=== PATIENT | female | born 1935 | race Caucasian/White ===

== ENCOUNTER 2016-10-01 18:42 | Observation (INO) | payer OTHER ==
[2016-10-01] VITALS (7 sets, daily range): BP systolic 142–209; BP diastolic 67–95; PULSE 56–65; RESP 18; TEMP 98.2; O2SAT 96–98
[~2016-10-01] VITALS: Ht 175.3 cm; Wt 99.5 kg
[~2016-10-01 18:42] MED LIST: ALLE25CA5 PO; ASPI325T PO; CHOL50006 PO; FURO1TAB93 PO; ISOS10TA35 PO; KCL20 PO; MULT1TAB46 PO; NITR.4 SL; SIMV20TA PO; VITA100020 SL
[2016-10-01] MEDS ORDERED: LACTCAP8 PO (19:21)
[2016-10-01] MEDS ORDERED: SODIUM CHLORIDE 0.9% FLUSH 5 ML FLUSH IVF PRN ×2 (19:30→22:30)
[2016-10-01] MEDS ORDERED: ISOSORBIDE DINITRATE 10 MG TAB PO ONE (19:30)
[2016-10-01] MEDS ORDERED: ASPIRIN 81 MG CHEW TAB PO ONE (19:30)
--- NOTE | 2016-10-01 19:48 | RADRPT ---
EXAM DATE/TIME: 10/01/2016 19:39 [facility] COMPARISON: CHEST SINGLE AP, June 11, 2015, 10:14. INDICATIONS : Chest pain. MEDICAL HISTORY : None. SURGICAL HISTORY : None. ENCOUNTER: Initial ACUITY: 1 day PAIN SCORE: 7/10 LOCATION: Bilateral chest FINDINGS: A single view of the chest demonstrates the lungs to be symmetrically aerated without evidence of mas s, infiltrate or effusion. The cardiomediastinal contours are unremarkable. Osseous structures are intact. CONCLUSION: No acute disease. Abhijeet Ritchie MD on October 01, 2016 at 19:46 Board Certified Radiologist. This report was verified electronically.
[2016-10-01 20:09] LABS: BASOPHIL % 0.4 % (0.0-2.0); EOSINOPHIL # 0.1 TH/MM3 (0-0.4); EOSINOPHIL % 0.7 % (0.0-4.0); HEMATOCRIT 46.6 % (35.0-46.0); HEMO FLAGS DIFF FINAL; LYMPHOCYTE # 1.3 TH/MM3 (1.0-4.8); MEAN CELL VOLUME 91.5 FL (80.0-100.0); MEAN CORPUSCULAR HEMOGLOBIN 31.4 PG (27.0-34.0); MEAN CORPUSCULAR HGB CONC 34.3 % (32.0-36.0); MONO % 5.7 % (0.0-8.0); NEUT % 82.2 % (16.0-70.0); PLATELET COUNT 255 TH/MM3 (150-450); RED BLOOD COUNT 5.09 MIL/MM3 (4.00-5.30); WHITE BLOOD COUNT 12.1 TH/MM3 (4.0-11.0)
[2016-10-01 20:18] LABS: APTT (PATIENT) 24.6 SEC (24.3-30.1); PROTHROMBIN TIME - PATIENT 10.7 SEC (9.8-11.6)
--- NOTE | 2016-10-01 20:21 | PD ---
HPI Chief Complaint: Cardiac Complaint Time Seen by Provider: 19:06 Travel History International Travel<30 days: No Contact w/Intl Traveler<30days: No Traveled to known affect area: No History of Present Illness HPI Patient is a 81-year-old female, with history of 7 stents, who comes in complaining of an episode of chest pain and shortness of breath. She says she was standing at her stove cooking when she suddenly felt terrible pressure to her chest and felt like she was unable to breathe. She says she tried taking a nitroglycerin, and it did not help, so she took another one. The pain started to the right side of her chest and then moved to the left. She says it radiates towards her neck. She says she told her daughter to call 911 because she felt like she needed oxygen. She does report coughing up some phlegm. She says she has had pain and swelling to her left leg for the past few days. She says the Lasix has not helped with the swelling. Her daughter does report that when she is feeling short of breath. Skin started to turn colors. She says it lasted until she was given oxygen by paramedics. Currently she is asymptomatic , other than her leg pain. PFSH Past Medical History Asthma: No Autoimmune Disease: No Blood Disorders: No Heart Rhythm Problems: Yes Cancer: Yes (UTERINE-REMOVED) Cardiac Catheterization: Yes Cardiovascular Problems: Yes (SD, STENTS(7), AFIB, MURMUR, CAD, WPW) High Cholesterol: Yes Chest Pain: No COPD: Yes Cerebrovascular Accident: Yes Coronary Artery Disease: Yes Diabetes: No Gastrointestinal Disorders: No GERD: Yes Glaucoma: Yes Hepatitis: No Hiatal Hernia: No Hypertension: Yes Musculoskeletal: Yes (DJD;) Psychiatric: No Respiratory: No Integumentary: No Myocardial Infarction: Yes Pancreatitis: Yes Sleep Apnea: No Thyroid Disease: No Menopausal: Yes Tubal Ligation: Yes Past Surgical History Abdominal Surgery: Yes (HERNIA REPAIR) Appendectomy: Yes Coronary Stent: Yes (X7) Hysterectomy: Yes Social History Alcohol Use: No Tobacco Use: No (QUIT 20 YEARS AGO ) Substance Use: No Allergies-Medications (Allergen,Severity, Reaction): Coded Allergies: Morphine (Unverified Allergy, Severe, AMS, 06/11/15) Penicillin (Verified Allergy, Severe, Hives, 06/11/15) Sulfa (Verified Allergy, Severe, Rash, 06/11/15) Uncoded Allergies: PENICILLIN (Allergy, Unknown, 05/29/03) Reported Meds & Prescriptions Reported Meds & Active Scripts Active Review of Systems Except as stated in HPI: all other systems reviewed are Neg General / Constitutional: No: Fever, Chills HENT: No: Headaches, Lightheadedness Cardiovascular: Positive: Chest Pain or Discomfort Respiratory: Positive: Shortness of Breath Gastrointestinal: No: Nausea, Vomiting Skin: No Rash, No Change in Pigmentation Neurologic: No: Weakness, Dizziness Physical Exam Narrative GENERAL: Awake and alert in no acute distress. SKIN: Warm and dry. HEAD: Atraumatic. Normocephalic. EYES: Pupils equal and round. No scleral icterus. ENT: Mucous membranes pink and moist. NECK: Trachea midline. No JVD. CARDIOVASCULAR: Regular rate and rhythm. No murmur appreciated. RESPIRATORY: No accessory muscle use. Clear to auscultation. Breath sounds equal bilaterally. GASTROINTESTINAL: Abdomen soft, non-tender, nondistended. Hepatic and splenic margins not palpable. MUSCULOSKELETAL: No obvious deformities. No clubbing. No cyanosis. Tender to palpation of left calf. 1+ edema of the left leg. NEUROLOGICAL: Awake and alert. No obvious cranial nerve deficits. Motor grossly within normal limits. Normal speech. PSYCHIATRIC: Appropriate mood and affect; insight and judgment normal. Data Data Last Documented VS Vital Signs Date Time Temp Pulse Resp B/P Pulse Ox O2 Delivery O2 Flow Rate FiO2 10/01/16 22:05 63 18 151/67 97 Nasal Cannula 2 10/01/16 18:50 98.2 Orders Electrocardiogram (10/01/16 19:19) B-Type Natriuretic Peptide (10/01/16 19:19) Ckmb (Isoenzyme) Profile (10/01/16 19:19) Complete Blood Count With Diff (10/01/16 19:19) Comprehensive Metabolic Panel (10/01/16 19:19) Magnesium (Mg) (10/01/16 19:19) Prothrombin Time / Inr (Pt) (10/01/16 19:19) Act Partial Throm Time (Ptt) (10/01/16 19:19) Troponin I (10/01/16 19:19) Chest, Single Ap (10/01/16 19:19) Ecg Monitoring (10/01/16 19:19) Bilateral Bp Monitoring (10/01/16 19:19) Iv Access Insert/Monitor (10/01/16 19:19) Oximetry (10/01/16 19:19) Oxygen Administration (10/01/16 19:19) Aspirin Chew (Aspirin Chew) (10/01/16 19:30) Sodium Chloride 0.9% Flush (Ns Flush) (10/01/16 19:30) Ct Pulmonary Angiogram (10/01/16 19:19) Us Leg Venous Doppler (10/01/16 ) Isosorbide Dinitrate (Isordil) (10/01/16 19:30) Iodixanol 320 Inj (Visipaque 320 Inj) (10/01/16 21:00) Activity Bed Rest With Brp (10/01/16 22:23) Vital Signs (Adult) Q4H (10/01/16 22:23) Cardiac Rhythm .As Directed (10/01/16 22:23) ^ Notify Dr: Other .PRN (10/01/16 22:23) ^ Notify . Parameters (10/01/16 22:23) Resp Oxygen Nasal Cannula (10/01/16 ) Diet Heart Healthy (10/02/16 Breakfast) Ckmb (Isoenzyme) Profile (10/01/16 22:45) Ckmb (Isoenzyme) Profile (10/02/16 01:45) Troponin I (10/01/16 22:45) Troponin I (10/02/16 01:45) Electrocardiogram (10/01/16 22:45) Electrocardiogram (10/02/16 01:45) ^ Obtain (10/01/16 22:23) Sodium Chloride 0.9% Flush (Ns Flush) (10/01/16 22:30) Sodium Chloride 0.9% Flush (Ns Flush) (10/02/16 09:00) Admit Order (Ed Use Only) (10/01/16 ) Labs Laboratory Tests Test 10/01/16 19:45 White Blood Count 12.1 TH/MM3 Red Blood Count 5.09 MIL/MM3 Hemoglobin 16.0 GM/DL Hematocrit 46.6 % Mean Corpuscular Volume 91.5 FL Mean Corpuscular Hemoglobin 31.4 PG Mean Corpuscular Hemoglobin 34.3 % Concent Red Cell Distribution Width 13.0 % Platelet Count 255 TH/MM3 Mean Platelet Volume 8.6 FL Neutrophils (%) (Auto) 82.2 % Lymphocytes (%) (Auto) 11.0 % Monocytes (%) (Auto) 5.7 % Eosinophils (%) (Auto) 0.7 % Basophils (%) (Auto) 0.4 % Neutrophils # (Auto) 10.0 TH/MM3 Lymphocytes # (Auto) 1.3 TH/MM3 Monocytes # (Auto) 0.7 TH/MM3 Eosinophils # (Auto) 0.1 TH/MM3 Basophils # (Auto) 0.0 TH/MM3 CBC Comment DIFF FINAL Differential Comment Prothrombin Time 10.7 SEC Prothromb Time International 1.0 RATIO Ratio Activated Partial 24.6 SEC Thromboplast Time Sodium Level 138 MEQ/L Potassium Level 3.8 MEQ/L Chloride Level 102 MEQ/L Carbon Dioxide Level 26.7 MEQ/L Anion Gap 9 MEQ/L Blood Urea Nitrogen 11 MG/DL Creatinine 1.32 MG/DL Estimat Glomerular Filtration 39 ML/MIN Rate Random Glucose 102 MG/DL Calcium Level 9.4 MG/DL Magnesium Level 2.2 MG/DL Total Bilirubin 0.5 MG/DL Aspartate Amino Transf 20 U/L (AST/SGOT) Alanine Aminotransferase 36 U/L (ALT/SGPT) Alkaline Phosphatase 82 U/L Total Creatine Kinase 96 U/L Troponin I LESS THAN 0.02 NG/ML B-Type Natriuretic Peptide 17 PG/ML Total Protein 8.5 GM/DL Albumin 4.9 GM/DL [facility] Medical Decision Making Medical Screen Exam Complete: Yes Emergency Medical Condition: Yes Medical Record Reviewed: Yes Interpretation(s) ECG shows sinus bradycardia at 56, no ST elevation or depression. Differential Diagnosis ACS, NSTEMI, STEMI, PE Narrative Course Patient is a 81 year old female who comes in complaining of an episode of chest pain and SOB. Exam shows no acute abnormalities. ECG shows no ST elevation. Labs sent, including Troponin are within normal limits. CTA chest performed shows no PE. US of the leg is negative for DVT. Patient given Aspirin, her night time blood pressure medication. Placed in chest pain center for further management. Diagnosis Primary Impression: Chest pain Qualified Code: R07.9 - Chest pain, unspecified type Admitting Information Admitting Physician Requests: Urmila Villa MD Oct 01, 2016 20:21 Placed in chest pain center for further management. Diagnosis Primary Impression: Chest pain Qualified Code: R07.9 - Chest pain, unspecified type Admitting Information Admitting Physician Requests: Urmila Villa MD Oct 01, 2016 20:21
[2016-10-01 20:39] LABS: ANION GAP 9 MEQ/L (5-15); AST (GOT) 20 U/L (15-37); BICARBONATE 26.7 MEQ/L (21.0-32.0); BLOOD UREA NITROGEN 11 MG/DL (7-18); CHLORIDE 102 MEQ/L (98-107); GLOMERULAR FILTRATION RATE 39 ML/MIN (>89); MAGNESIUM 2.2 MG/DL (1.5-2.5); POTASSIUM 3.8 MEQ/L (3.5-5.1); SODIUM (NA) 138 MEQ/L (136-145)
[2016-10-01 20:45] LABS: ALKALINE PHOSPHATASE 82 U/L (45-117); ALT (GPT) 36 U/L (10-53); TOTAL BILIRUBIN ADULT 0.5 MG/DL (0.2-1.0)
[2016-10-01 20:55] LABS: CREATINE KINASE 96 U/L (26-192)
[2016-10-01] MEDS ORDERED: IODIXANOL 320 MG/ML 10 ML VIAL (for RAD SPEC) IV ONE (21:00)
--- NOTE | 2016-10-01 21:21 | RADRPT ---
EXAM DATE/TIME: 10/01/2016 20:54 [facility] COMPARISON: CHEST SINGLE AP, October 01, 2016, 19:39. INDICATIONS : Shortness of breath with chest pain that radiates nena both arms. IV CONTRAST: 50 cc Visipaque (iodixanol) IV RADIATION DOSE: 23.42 CTDIvol (mGy) MEDICAL HISTORY : Cerebrovascular disease. Myocardial infarction. Chronic obstructive pulmonary disease.Coronary artery disease. Hypertension. Gastroesophageal reflux disease. Stage three renal disease. SURGICAL HISTORY : Coronary artery stent. ENCOUNTER: Initial ACUITY: 1 day PAIN SCALE: 7/10 LOCATION: Bilateral chest TECHNIQUE: Volumetric scanning of the chest was performed using a pulmonary embolism protocol MIP images were re constructed. Using automated exposure control and adjustment of the mA and/or kV according to patien t size, radiation dose was kept as low as reasonably achievable to obtain optimal diagnostic quality images. FINDINGS: PULMONARY ARTERIES: There is suboptimal opacification of the distal pulmonary arteries. No filling defects are seen in th e central pulmonary arteries. LUNGS: There is no consolidation or pneumothorax . Minimal scattered bibasilar densities. No concerning pulm onary nodule is visualized. PLEURAE: There is no pleural thickening or pleural effusion. MEDIASTINUM: There is good visualization of the great vessels of the middle mediastinum. No evidence of mediastin al or hilar adenopathy/mass. Coronary artery calcifications. MUSCULOSKELETAL: Within normal limits for patient age. MISCELLANEOUS: The visualized upper abdominal organs demonstrate no acute abnormality. CONCLUSION: 1. No central pulmonary emboli. 2. Coronary artery calcifications. 3. Minimal densities in the lower lobes likely atelectasis. Abhijeet Ritchie MD on October 01, 2016 at 21:10 Board Certified Radiologist. This report was verified electronically.
--- NOTE | 2016-10-01 22:04 | RADRPT ---
EXAM DATE/TIME: 10/01/2016 21:21 [facility] COMPARISON: No previous studies available for comparison. INDICATIONS : Left lower extremity pain. MEDICAL HISTORY : Myocardial infarction. Hypercholesterolemia. Pancreatitis. Glaucoma. CVA. Syncope. Afib. CAD. HTN. COPD. GERD. Stage III chronic kidney disease. Uterine cancer. Anticoagulant therapy, Aspirin 81mg & 375mg. SURGICAL HISTORY : Coronary artery stent. Appendectomy. Tubal ligation. Cardiac cath. Hernia repair. Hysterectomy. ENCOUNTER: Initial ACUITY: 1 week PAIN SCORE: 8/10 LOCATION: Left leg. TECHNIQUE: Venous ultrasound of the leg was performed from the inguinal ligament to the proximal calf. Real-chris e, color Doppler and spectral tracing, compression and augmentation techniques were used. FINDINGS: There is normal compressibility of the deep venous system from the inguinal region to the proximal ca lf. No echogenic clot is seen in the lumen of the common femoral, femoral, popliteal, and posterior tibial veins. There is a normal response of the venous system to proximal and distal augmentation an d respiration. Viscous flow noted. CONCLUSION: No DVT in the left leg. Abhijeet Ritchie MD on October 01, 2016 at 22:02 Board Certified Radiologist. This report was verified electronically.
[2016-10-01 23:37] LABS: CREATINE KINASE 72 U/L (26-192)
[2016-10-02] VITALS (19 sets, daily range): BP systolic 114–186; BP diastolic 60–85; PULSE 54–81; RESP 18; TEMP 97.7–98.3; O2SAT 95–99
[2016-10-02 02:24] LABS: CREATINE KINASE 77 U/L (26-192)
[2016-10-02] MEDS ORDERED: ISOSORBIDE MONONITRATE 10 MG PO SCH (09:00)
[2016-10-02] MEDS ORDERED: ASPI325T PO (09:04)
[2016-10-02] MEDS ORDERED: D3400CAP PO (09:04)
[2016-10-02] MEDS ORDERED: FURO1TAB60 PO (09:05)
[2016-10-02] MEDS ORDERED: POTA-163 PO (09:10)
[2016-10-02] MEDS ORDERED: ISOS10TA3 PO (09:10)
[2016-10-02] MEDS ORDERED: NITR1SUB3 SL (09:10)
[2016-10-02] MEDS ORDERED: SIMV20TA PO (09:10)
[2016-10-02] MEDS ORDERED: amLODIPine BESYLATE 5 MG TAB PO SCH (09:45)
[2016-10-02] MEDS: POTASSIUM CHLORIDE 20 MEQ CONTROLLED RELEASE TAB PO SCH ×2 (10:06→20:28)
[2016-10-02] MEDS: FUROSEMIDE 40 MG TAB PO SCH (10:07)
[2016-10-02] MEDS: SODIUM CHLORIDE 0.9% FLUSH 5 ML FLUSH IVF SCH ×2 (10:07→20:28)
--- NOTE | 2016-10-02 11:08 | MB ---
cc: CASE VITAL,ALEJANDRO Hinton MD DATE OF CONSULTATION 10/02/[address] Alejandro Burton REASON FOR CONSULTATION Chest pain, shortness of breath. HISTORY OF PRESENT ILLNESS Nikki Castelan is a pleasant 81-year-old female who presents to [facility] emergency room on October 01, 2015 due to chest pain and shortness of breath. She states that she was at home cooking in the kitchen and started feeling short of breath. At the same time, she started having pressure in the center of her chest and then started feeling a throbbing into her head. She states that she has never felt like this before. She attempted to take a nitroglycerin which did not help. She then took a second nitroglycerin which started to help. She asked her daughter to call EMS. On arrival of EMS staff she was placed on oxygen. She states that at that time the chest pressure had gone away which she still had somewhat of a headache. On arrival to the emergency room, her blood pressure was 209/95. Once her blood pressure started to come down into the 160/70 range, she started to feel better. She states since being in the emergency room, she has had no chest pain, shortness of breath or headaches. She has been up and walking around the room without complaints. PAST MEDICAL HISTORY 1. Coronary artery disease 2. Uterine cancer 3. Questionable history of atrial fibrillation. 4. History of sinus bradycardia. 5. Questionable history of CVA. 6. Chronic kidney disease stage III. 7. DJD 8. Gastroesophageal reflux disease 9. Hyperlipidemia 10. Hypertension 11. 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 PAST SURGICAL HISTORY 1. Cardiac catheterization. (May 05, 2016) left main ALEXANDER-3 tired flow. LAD, patent stents. Left circ proximal eccentric 70% lesion, patent stenting. RCA dominant patent stents with luminal irregularities. FFR of the left circumflex 0.96. 2. EP study (May 06, 2016) negative for supraventricular Tachycardia. 3. Appendectomy 4. Hernia repair 5. Hysterectomy 6. Tubal ligation ALLERGIES 1. MORPHINE 2. PENICILLIN 3. SULFA MEDICATIONS 1. Aspirin 325 mg daily 2. Zocor 20 mg daily 3. Lasix 40 mg daily 4. Isosorbide mononitrate 10 mg b.i.d. 5. Nitro sublingual as needed 6. Potassium 20 mEq daily FAMILY HISTORY Denies premature coronary artery disease or sudden cardiac within the family. SOCIAL HISTORY Denies alcohol or drug abuse. Previously was a cardiovascular nurse. Previously smoked one to one and a half packs per day, but quit a number of years ago. REVIEW OF SYSTEMS 14 systems were reviewed including osteopathic pertinent positives and negatives as above, otherwise negative. PHYSICAL EXAMINATION VITAL SIGNS: Temperature 98.2, heart rate 60, blood pressure 186/77, respirations 18, pulse ox 97% on room air. GENERAL: In general, the patient appears well in no acute distress, alert, awake and oriented x3. HEAD, EYES, EARS, NOSE, AND THROAT: Extraocular muscles intact. Mucous membranes moist. NECK: Supple. No JVD at 45 degrees. No carotid bruits heard bilaterally. Carotid upstroke is brisk in nature. HEART: Regular rate and rhythm. Positive first and second heart sounds with a 1/6 holosystolic murmur noted at the apex. LUNGS: Clear to auscultation bilaterally. No wheezes, rales or rhonchi. ABDOMEN: Soft, nontender, nondistended. No organomegaly noted. EXTREMITIES: Shows trace to 1+ pitting edema bilaterally. NEUROLOGIC: No focal deficits. SKIN: Warm, dry and intact. OSTEOPATHIC: Mild lordosis. No kyphoscoliosis or paraspinal tender points. LABORATORY FINDINGS White blood cells 12.1, hemoglobin 16.0, hematocrit 46.6, platelets 255. Potassium 3.8, BUN 11, creatinine 1.32, troponin negative x3. BNP 17. Electrocardiogram (10/02/2016 at 0238) sinus bradycardia, LVH with secondary ST-T wave changes. No significant change on EKG since May 05, 2016. IMPRESSIONS 1. Chest pain possibly due to angina versus elevated blood pressure. 2. Headache due to hypertensive episode. 3. Accelerated hypertension with a blood pressure of 209/95 on arrival to the emergency room. 4. Shortness of breath most likely due to elevated blood pressure. 5. Questionable history of atrial fibrillation. 6. History of WPW. 7. Recent cardiac catheterization (May 05, 2016) with no significant obstructive coronary artery disease. RECOMMENDATIONS 1. Nikki Castelan presents with an elevated blood pressure and during this time she had some chest pressure, headache and shortness of breath. I feel like her underlying cause is due to her blood pressure more likely than true obstructive coronary artery disease. 2. I do not feel that she needs to be taken to the cardiac catheterization lab as troponins have been negative, EKG is stable since April 2016, and she currently has no chest pain or shortness of breath. 3. I did offer her consideration of stress test due to her chest pain with her significant history of seven stents, but she feels she would like to treat this medically and hoping that with better blood pressure control, she will no longer have chest pain or shortness of breath. 4. I will add Norvasc 5 mg to her current regimen and this can be titrated up to 10. I would also consider increasing her isosorbide if unable to control her blood pressure with Norvasc. 5. Upon discharge, she can follow up with Dr. Hair in the office. 6. The did explain that if any time she reconsiders medical management of her coronary artery disease, then consideration could be made at that time for stress testing depending on her current symptoms. 7. At this time, she did not prefer to undergo a stress test as she would not want cardiac catheterization if positive Thank you for allowing me to see Nikki Castelan. If there are any questions, please do not hesitate to call. Case Vital DO VGP/DJL /9:29 AM /10:46 AM VEE
--- NOTE | 2016-10-02 14:36 | EKG ---
Date Performed: 10/02/2016 Time Performed: 02:38:53 PTAGE: 81 years EKG: SINUS BRADYCARDIA LEFT VENTRICULAR HYPERTROPHY AND ST-T CHANGE ABNORMAL ECG PREVIOUS TRACING : 10/01/2016 22.47 Since previous tracing, no significant change noted DOCTOR: Rich Julio Interpretating Date/Time 10/02/2016 14:36:02
--- NOTE | 2016-10-02 14:44 | EKG ---
Date Performed: 10/01/2016 Time Performed: 22:47:46 PTAGE: 81 years EKG: SINUS BRADYCARDIA LEFT VENTRICULAR HYPERTROPHY AND ST-T CHANGE ABNORMAL ECG PREVIOUS TRACING : 10/01/2016 19.42 Since previous tracing, no significant change noted DOCTOR: Rich Julio Interpretating Date/Time 10/02/2016 14:44:06
--- NOTE | 2016-10-02 14:47 | EKG ---
Date Performed: 10/01/2016 Time Performed: 19:42:43 PTAGE: 81 years EKG: SINUS BRADYCARDIA LEFT VENTRICULAR HYPERTROPHY AND ST-T CHANGE ABNORMAL ECG PREVIOUS TRACING : 05/05/2016 21.23 Since previous tracing, no significant change noted DOCTOR: Rich Julio Interpretating Date/Time 10/02/2016 14:45:24
--- NOTE | 2016-10-02 17:02 | HHI.HP ---
cc: Alejandro Burton MD [facility] Alejandro Burton MD Admission Diagnosis Chest Pain Diagnoses: Chief Complaint: Chest discomfort Travel History International Travel<30 Days: No Contact w/Intl Traveler <30 Da: No Traveled to Known Affected Are: No History of Present Illness This is a 81-year-old female with history of hypertension, coronary artery disease, CVA and chronic kidney disease status post a hospital with chest pain or shortness of breath. She has been in her usual state of health until yesterday when she was home cooking in the kitchen and started feeling short of breath, described as moderate to severe, described as pressure, accompanied by throbbing in her head. She took a nitroglycerin which did not help. A second nitroglycerin helped. She was then brought to the hospital by EMS, upon arrival , blood pressure was in the 210 systolic. Once her blood pressure improved, she started feeling better. She denies any numbness, headache, nausea, vomiting , or focal weakness. Presently, she feels a lot better, no chest pain. Review of Systems ROS Limitations: Other (All other pertinent systems were reviewed and are negative.) Past Family Social History Past Medical History 1. Coronary artery disease 2. Uterine cancer 3. Questionable history of atrial fibrillation. 4. History of sinus bradycardia. 5. Questionable history of CVA. 6. Chronic kidney disease stage III. 7. DJD 8. Gastroesophageal reflux disease 9. Hyperlipidemia 10. Hypertension 11. 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 Past Surgical History 1. Cardiac catheterization. (May 05, 2016) left main ALEXANDER-3 tired flow. LAD, patent stents. Left circ proximal eccentric 70% lesion, patent stenting. RCA dominant patent stents with luminal irregularities. FFR of the left circumflex 0.96. 2. EP study (May 06, 2016) negative for supraventricular Tachycardia. 3. Appendectomy 4. Hernia repair 5. Hysterectomy 6. Tubal ligation Reported Medications Simvastatin 20 Mg Tab 20 Mg PO DAILY Nitroglycerin SL (Nitroglycerin) 0.4 Mg Subl 0.4 Mg SL DIRECTED PRN ONE TABLET UNDER THE TONGUE NEEDED FOR CHEST PAIN, MAY REPEAT EVERY FIVE MINUTES FOR A TOTAL OF 3 DOSES OR CALL 911 IF NO RELIEF Potassium Chloride ER (Potassium Chloride) 20 Meq Tab 20 Meq PO DAILY Isosorbide Mononitrate 10 Mg Tab 10 Mg PO BID Take 2 doses 7 hours apart. Lasix (Furosemide) 40 Mg Tab 40 Mg PO DAILY D3 (Cholecalciferol) 400 Unit Cap 400 Mg PO DAILY Aspirin 325 Mg Tab 325 Mg PO DAILY Allergies: Coded Allergies: Morphine (Unverified Allergy, Severe, AMS, 06/11/15) Penicillin (Verified Allergy, Severe, Hives, 06/11/15) Sulfa (Verified Allergy, Severe, Rash, 06/11/15) Uncoded Allergies: PENICILLIN (Allergy, Unknown, 05/29/03) Family History No premature coronary artery disease. Social History Previously a cardiovascular nurse.. He smoked 1-1-1/2 packs a day but has quit. No alcohol use. Physical Exam Vital Signs Vital Signs Date Time Temp Pulse Resp B/P Pulse Ox O2 Delivery O2 Flow Rate FiO2 10/02/16 16:03 57 10/02/16 15:10 62 10/02/16 15:10 98.0 62 18 156/78 95 10/02/16 14:13 60 10/02/16 13:06 59 10/02/16 13:00 97.7 57 18 160/72 99 10/02/16 12:37 57 10/02/16 12:28 98.3 58 18 172/68 99 10/02/16 11:08 98.3 56 18 175/72 98 Room Air 10/02/16 08:32 60 18 186/77 97 Room Air 10/02/16 07:15 56 18 114/61 96 Room Air 10/02/16 04:40 55 18 141/85 95 Room Air 10/01/16 23:36 96 Nasal Cannula 2.00 10/01/16 22:56 56 18 158/67 98 Nasal Cannula 2 10/01/16 22:05 63 18 151/67 97 Nasal Cannula 2 10/01/16 21:30 62 18 147/70 98 Nasal Cannula 2 10/01/16 20:00 62 18 142/76 97 Nasal Cannula 2 10/01/16 19:52 98 Nasal Cannula 2 10/01/16 19:08 64 18 152/73 98 Room Air 10/01/16 18:50 98.2 65 18 209/95 98 Physical Exam GENERAL: This is a well-nourished, well-developed patient, in no apparent distress. SKIN: No rashes, ecchymoses or lesions. Cool and dry. HEAD: Atraumatic. Normocephalic. No temporal or scalp tenderness. EYES: Pupils equal round and reactive. Extraocular motions intact. No scleral icterus. No injection or drainage. ENT: Nose without bleeding, purulent drainage or septal hematoma. Throat without erythema, tonsillar hypertrophy or exudate. Uvula midline. Airway patent. NECK: Trachea midline. No JVD or lymphadenopathy. Supple, nontender, no meningeal signs. CARDIOVASCULAR: Regular rate and rhythm without murmurs, gallops, or rubs. RESPIRATORY: Clear to auscultation. Breath sounds equal bilaterally. No wheezes , rales, or rhonchi. GASTROINTESTINAL: Abdomen soft, non-tender, nondistended. No hepato-splenomegaly , or palpable masses. No guarding. MUSCULOSKELETAL: Extremities without clubbing, cyanosis, or edema. No joint tenderness, effusion, or edema noted. No calf tenderness. Negative Homans sign bilaterally. NEUROLOGICAL: Awake and alert. Cranial nerves II through XII intact. Motor and sensory grossly within normal limits. Five out of 5 muscle strength in all muscle groups. Normal speech. Laboratory Laboratory Tests Test 10/01/16 10/01/16 10/02/16 19:45 22:45 01:45 White Blood Count 12.1 Red Blood Count 5.09 Hemoglobin 16.0 Hematocrit 46.6 Mean Corpuscular Volume 91.5 Mean Corpuscular Hemoglobin 31.4 Mean Corpuscular Hemoglobin 34.3 Concent Red Cell Distribution Width 13.0 Platelet Count 255 Mean Platelet Volume 8.6 Neutrophils (%) (Auto) 82.2 Lymphocytes (%) (Auto) 11.0 Monocytes (%) (Auto) 5.7 Eosinophils (%) (Auto) 0.7 Basophils (%) (Auto) 0.4 Neutrophils # (Auto) 10.0 Lymphocytes # (Auto) 1.3 Monocytes # (Auto) 0.7 Eosinophils # (Auto) 0.1 Basophils # (Auto) 0.0 CBC Comment DIFF FINAL Differential Comment Prothrombin Time 10.7 Prothromb Time International 1.0 Ratio Activated Partial 24.6 Thromboplast Time Sodium Level 138 Potassium Level 3.8 Chloride Level 102 Carbon Dioxide Level 26.7 Anion Gap 9 Blood Urea Nitrogen 11 Creatinine 1.32 Estimat Glomerular Filtration 39 Rate Random Glucose 102 Calcium Level 9.4 Magnesium Level 2.2 Total Bilirubin 0.5 Aspartate Amino Transf 20 (AST/SGOT) Alanine Aminotransferase 36 (ALT/SGPT) Alkaline Phosphatase 82 Total Creatine Kinase 96 72 77 Troponin I LESS THAN 0.02 LESS THAN 0.02 LESS THAN 0.02 B-Type Natriuretic Peptide 17 Total Protein 8.5 Albumin 4.9 Result Diagram: 10/01/16194410/01/161944 Imaging Last Impressions Chest X-Ray 10/01/161918 Signed Impressions: Service Date/Time: Saturday, October 01, 2016 19:39 - CONCLUSION: No acute disease. Abhijeet Ritchie MD CT Angiography 10/01/161918 Signed Impressions: Service Date/Time: Saturday, October 01, 2016 20:54 - CONCLUSION: 1. No central pulmonary emboli. 2. Coronary artery calcifications. 3. Minimal densities in the lower lobes likely atelectasis. Abhijeet Ritchie MD Lower Extremity Ultrasound 10/01/16 0000 Signed Impressions: Service Date/Time: Saturday, October 01, 2016 21:21 - CONCLUSION: No DVT in the left leg. Abhijeet Ritchie MD Assessment and Plan Assessment and Plan This is a 81-year-old female with history of hypertension, chronic kidney disease, coronary artery disease presenting with chest pain and shortness of breath Chest pain likely secondary to hypertensive emergency- chest pain likely secondary to hypertensive emergency, EKG unremarkable personally reviewed, troponin negative 3. Norvasc started. Restart Lasix and Imdur. Cardiology consulted, patient refused stress test or any further workup. Discussed with Dr. Talley. Vasotec and hydralazine as needed. Hypertension-as above. Dyslipidemia-restart statin Chronic kidney disease stage II-creatinine appears baseline, recheck BMP tomorrow Leukocytosis-likely stress-induced, monitor, recheck tomorrow. DVT prophylaxis: Heparin Physician Certification 2 Midnight Certification Type: Admission for Inpatient Services Order for Inpatient Services The services are ordered in accordance with Medicare regulations or non- Medicare payer requirements, as applicable. In the case of services not specified as inpatient-only, they are appropriately provided as inpatient services in accordance with the 2-midnight benchmark. Estimated LOS (days): 2 days is the estimated time the patient will need to remain in the hospital, assuming treatment plan goals are met and no additional complications. Post-Hospital Plan: Yajaira Rogers MD Oct 02, 2016 17:02
[2016-10-02] MEDS ORDERED: FUROSEMIDE 40 MG TAB PO SCH (17:15)
[2016-10-02] MEDS ORDERED: ENALAPRILAT 1.25 MG/ML VIAL IV PUSH PRN (17:30)
[2016-10-02] MEDS ORDERED: hydrALAZINE HCL 20 MG/ML VIAL IV PUSH PRN (17:30)
[2016-10-02] MEDS ORDERED: ISOSORBIDE MONONITRATE 20 MG TAB PO SCH (18:00)
[2016-10-02] MEDS: HEPARIN SODIUM - SQ 10,000 UNITS/ML VIAL SQ SCH (20:28)
[2016-10-02] MEDS ORDERED: PRAVASTATIN SOD 40 MG TAB PO SCH (21:00)
[2016-10-03] VITALS (10 sets, daily range): BP systolic 121–126; BP diastolic 65–76; PULSE 48–60; TEMP 97.4–97.8; O2SAT 96–98
[2016-10-03] MEDS: HEPARIN SODIUM - SQ 10,000 UNITS/ML VIAL SQ SCH (05:48)
[2016-10-03] MEDS: POTASSIUM CHLORIDE 20 MEQ CONTROLLED RELEASE TAB PO SCH (08:04)
[2016-10-03] MEDS: FUROSEMIDE 40 MG TAB PO SCH (08:05)
[2016-10-03] MEDS ORDERED: ASPIRIN 325 MG TAB PO SCH (09:00)
[2016-10-03] MEDS ORDERED: PRAVASTATIN SOD 40 MG TAB PO SCH (09:00)
[2016-10-03] MEDS ORDERED: POTASSIUM CHLORIDE 20 MEQ CONTROLLED RELEASE TAB PO SCH (09:00)
[2016-10-03] MEDS ORDERED: CHOLECALCIFEROL (VIT D3) 400 UNIT TAB PO SCH (09:00)
--- NOTE | 2016-10-03 09:58 | PD.CARD.PN ---
Subjective Subjective Remarks No chest pain, no shortness of breath, up and ambulating Objective Medications Current Medications Medications (Trade) Dose Ordered Sig/Cassy Route Start Time Stop Time Status Last Admin (Lasix) 40 mg DAILY PO 10/02/16 09:00 10/03/16 08:05 (KCl) 20 meq BID PO 10/02/16 09:00 10/03/16 08:04 (Pravachol) 40 mg HS PO 10/02/16 21:00 10/02/16 20:28 (Norvasc) 5 mg DAILY PO 10/02/16 09:45 10/02/16 10:06 (Aspirin) 325 mg DAILY PO 10/03/16 09:00 10/03/16 08:04 (Lasix) 40 mg DAILY PO 10/02/16 17:15 (Ismo) 10 mg DAILY@08,15 PO 10/02/16 18:00 10/02/16 18:34 (KCl) 20 meq DAILY PO 10/03/16 09:00 (Vitamin D3) 400 units DAILY PO 10/03/16 09:00 10/03/16 08:05 (Pravachol) 40 mg DAILY PO 10/03/16 09:00 10/03/16 08:04 (Apresoline Inj) 10 mg Q6H PRN IV PUSH 10/02/16 17:30 (Vasotec Inj) 1.25 mg Q6H PRN IV PUSH 10/02/16 17:30 10/02/16 20:34 (Heparin Inj) 5,000 units Q8HR SQ 10/02/16 22:00 10/03/16 05:48 Vital Signs / I&O Vital Signs Date Time Temp Pulse Resp B/P Pulse Ox O2 Delivery O2 Flow Rate FiO2 10/03/16 09:00 60 10/03/16 08:00 58 10/03/16 07:00 97.4 60 121/76 98 10/03/16 07:00 60 10/03/16 05:00 50 10/03/16 04:00 49 10/03/16 03:00 97.8 55 126/65 96 10/03/16 03:00 55 10/03/16 02:00 48 10/03/16 01:00 50 10/03/16 00:00 56 10/02/16 23:00 98.0 55 134/60 95 10/02/16 23:00 55 10/02/16 22:00 54 10/02/16 21:00 56 10/02/16 20:00 60 10/02/16 19:00 59 10/02/16 19:00 97.7 59 160/80 98 10/02/16 18:07 61 10/02/16 17:24 66 10/02/16 16:03 57 10/02/16 15:10 62 10/02/16 15:10 98.0 62 18 156/78 95 10/02/16 14:13 60 10/02/16 13:06 59 10/02/16 13:00 97.7 57 18 160/72 99 10/02/16 12:37 57 10/02/16 12:28 98.3 58 18 172/68 99 10/02/16 11:08 98.3 56 18 175/72 98 Room Air I/O 10/02/16 10/02/16 10/02/16 10/03/16 10/03/16 10/03/16 07:00 15:00 23:00 07:00 15:00 23:00 Intake Total 480 ml 240 ml Output Total 200 ml Balance 480 ml 40 ml Intake Oral 480 ml 240 ml Output Urine Total 200 ml # Voids 2 1 # Bowel Movements 0 Physical Exam GENERAL: NAD, AAOx3 SKIN: Warm and dry. HEAD: Atraumatic. Normocephalic. EYES: Pupils equal and round. No scleral icterus. No injection or drainage. ENT: No nasal bleeding or discharge. Mucous membranes pink and moist. NECK: Trachea midline. No JVD. CARDIOVASCULAR: Regular rate and rhythm. RESPIRATORY: No accessory muscle use. Clear to auscultation. Breath sounds equal bilaterally. GASTROINTESTINAL: Abdomen soft, non-tender, nondistended. Hepatic and splenic margins not palpable. MUSCULOSKELETAL: Trace edema bilaterally NEUROLOGICAL: Awake and alert. No obvious cranial nerve deficits. Motor grossly within normal limits. Five out of 5 muscle strength in the arms and legs. Normal speech. PSYCHIATRIC: Appropriate mood and affect; insight and judgment normal. Laboratory Laboratory Tests Test 10/01/16 10/01/16 10/02/16 19:45 22:45 01:45 White Blood Count 12.1 TH/MM3 (4.0-11.0) Red Blood Count 5.09 MIL/MM3 (4.00-5.30) Hemoglobin 16.0 GM/DL (11.6-15.3) Hematocrit 46.6 % (35.0-46.0) Mean Corpuscular Volume 91.5 FL (80.0-100.0) Mean Corpuscular Hemoglobin 31.4 PG (27.0-34.0) Mean Corpuscular Hemoglobin 34.3 % Concent (32.0-36.0) Red Cell Distribution Width 13.0 % (11.6-17.2) Platelet Count 255 TH/MM3 (150-450) Mean Platelet Volume 8.6 FL (7.0-11.0) Neutrophils (%) (Auto) 82.2 % (16.0-70.0) Lymphocytes (%) (Auto) 11.0 % (9.0-44.0) Monocytes (%) (Auto) 5.7 % (0.0-8.0) Eosinophils (%) (Auto) 0.7 % (0.0-4.0) Basophils (%) (Auto) 0.4 % (0.0-2.0) Neutrophils # (Auto) 10.0 TH/MM3 (1.8-7.7) Lymphocytes # (Auto) 1.3 TH/MM3 (1.0-4.8) Monocytes # (Auto) 0.7 TH/MM3 (0-0.9) Eosinophils # (Auto) 0.1 TH/MM3 (0-0.4) Basophils # (Auto) 0.0 TH/MM3 (0-0.2) CBC Comment DIFF FINAL Differential Comment Prothrombin Time 10.7 SEC (9.8-11.6) Prothromb Time International 1.0 RATIO Ratio Activated Partial 24.6 SEC Thromboplast Time (24.3-30.1) Sodium Level 138 MEQ/L (136-145) Potassium Level 3.8 MEQ/L (3.5-5.1) Chloride Level 102 MEQ/L (98-107) Carbon Dioxide Level 26.7 MEQ/L (21.0-32.0) Anion Gap 9 MEQ/L (5-15) Blood Urea Nitrogen 11 MG/DL (7-18) Creatinine 1.32 MG/DL (0.50-1.00) Estimat Glomerular Filtration 39 ML/MIN (>89) Rate Random Glucose 102 MG/DL (74-106) Calcium Level 9.4 MG/DL (8.5-10.1) Magnesium Level 2.2 MG/DL (1.5-2.5) Total Bilirubin 0.5 MG/DL (0.2-1.0) Aspartate Amino Transf 20 U/L (15-37) (AST/SGOT) Alanine Aminotransferase 36 U/L (10-53) (ALT/SGPT) Alkaline Phosphatase 82 U/L (45-117) Total Creatine Kinase 96 U/L (26-192) 72 U/L (26-192) 77 U/L (26-192) Troponin I LESS THAN 0.02 LESS THAN 0.02 LESS THAN 0.02 NG/ML NG/ML NG/ML (0.02-0.05) (0.02-0.05) (0.02-0.05) B-Type Natriuretic Peptide 17 PG/ML (0-100) Total Protein 8.5 GM/DL (6.4-8.2) Albumin 4.9 GM/DL (3.4-5.0) Assessment and Plan Problem List: (1) Chest pain (2) HTN (hypertension) Assessment and Plan 1) Chest pain/SOB, no enzyme spill.... recent cath April 2016 with no obstructive CAD... Hypertensive episode most likely the cause 2) Would prefer medical management, no stress test/cath per the patient 3) Added Norvasc 5mg daily, blood pressure better controlled 4) OK to discharge from a cardiovascular perspective, f/u with Dr. Hair in the office Problem Qualifiers (1) Chest pain: Qualified Code: R07.9 - Chest pain, unspecified type Case Buenrostro DO Oct 03, 2016 09:58
[2016-10-03] MEDS ORDERED: AMLO5 PO (10:50)
--- NOTE | 2016-10-03 12:34 | HHI.PR ---
Subjective Remarks Follow-up for chest discomfort No further chest discomfort, blood pressure is stable. No shortness of breath, no headache. Objective Vitals Vital Signs Date Time Temp Pulse Resp B/P Pulse Ox O2 Delivery O2 Flow Rate FiO2 10/03/16 09:50 96 10/03/16 09:00 60 10/03/16 08:00 58 10/03/16 07:00 97.4 60 121/76 98 10/03/16 07:00 60 10/03/16 05:00 50 10/03/16 04:00 49 10/03/16 03:00 97.8 55 126/65 96 10/03/16 03:00 55 10/03/16 02:00 48 10/03/16 01:00 50 10/03/16 00:00 56 10/02/16 23:00 98.0 55 134/60 95 10/02/16 23:00 55 10/02/16 22:00 54 10/02/16 21:00 56 10/02/16 20:00 60 10/02/16 19:00 59 10/02/16 19:00 97.7 59 160/80 98 10/02/16 18:07 61 10/02/16 17:24 66 10/02/16 16:03 57 10/02/16 15:10 62 10/02/16 15:10 98.0 62 18 156/78 95 10/02/16 14:13 60 10/02/16 13:06 59 10/02/16 13:00 97.7 57 18 160/72 99 10/02/16 12:37 57 I/O 10/02/16 10/02/16 10/02/16 10/03/16 10/03/16 10/03/16 07:00 15:00 23:00 07:00 15:00 23:00 Intake Total 480 ml 240 ml Output Total 200 ml Balance 480 ml 40 ml Intake Oral 480 ml 240 ml Output Urine Total 200 ml # Voids 2 1 # Bowel Movements 0 Result Diagram: 10/01/16194410/01/161944 Objective Remarks Not in distress, well-nourished, looks stated age PERRL, pink conjunctiva without injection, anicteric Nose without bleeding, airway patent, oropharynx clear Supple neck, no masses or thyromegaly, trachea midline Normal rate and regular rhythm, no murmurs gallops or rubs appreciated. Clear to auscultation and symmetric bilaterally, normal respiratory effort. Normal bowel sounds, soft, non-tender, nondistended, no guarding. Extremities without clubbing, cyanosis, or edema. No rash of generalized distribution. Skin is warm and dry. AAO x3, no cranial nerve deficits, moves all 4 extremities, no focal neurologic deficits Normal mood, appropriate affect A/P Assessment and Plan This is a 81-year-old female with history of hypertension, chronic kidney disease, coronary artery disease presenting with chest pain and shortness of breath Chest pain likely secondary to hypertensive emergency- chest pain likely secondary to hypertensive emergency, EKG unremarkable personally reviewed, troponin negative 3. Norvasc started. Continue Lasix and Imdur. Cardiology consulted, patient refused stress test or any further workup. Discussed with Dr. Talley, no further workup, cardiac catheterization in April 2016 negative for coronary artery disease. Likely secondary to hypertensive emergency. Charge 1 Norvasc. Hypertension-as above. Dyslipidemia-restart statin Chronic kidney disease stage II-creatinine appears baseline, stable Leukocytosis-likely stress-induced, monitor, stable DVT prophylaxis: Heparin Discharge patient to home Condition on discharge: Improved Regular Diet as tolerated Ad Hiw[employer] activity Rx written: Norvasc 5 mg daily Follow-up with primary care physician one week Yajaira Tomas MD Oct 03, 2016 12:34
== END 2016-10-03 11:39 | disposition home or self-care (01) ==
LOC: NEPE 18:42 → NEDA 22:27 → NEDH 10-02 02:27 → HCIN 10-02 12:18
PROVIDERS: ADMIT Hospitalist; ATTEND Hospitalist
DX: R07.89 Other chest pain (principal); I16.1 Hypertensive emergency; I12.9 Hypertensive chronic kidney disease with stage 1 through stage 4 chronic kidney disease, or unspecified chronic kidney disease; N18.3 Chronic kidney disease, stage 3 (moderate); D72.829 Elevated white blood cell count, unspecified; I25.10 Atherosclerotic heart disease of native coronary artery without angina pectoris; I25.2 Old myocardial infarction; E78.5 Hyperlipidemia, unspecified; E78.00 Pure hypercholesterolemia, unspecified; I48.91 Unspecified atrial fibrillation; J44.9 Chronic obstructive pulmonary disease, unspecified; J98.11 Atelectasis; K21.9 Gastro-esophageal reflux disease without esophagitis; M19.90 Unspecified osteoarthritis, unspecified site; Z85.42 Personal history of malignant neoplasm of other parts of uterus; Z95.5 Presence of coronary angioplasty implant and graft; Z86.73 Personal history of transient ischemic attack (TIA), and cerebral infarction without residual deficits; Z87.891 Personal history of nicotine dependence
CPT/HCPCS: 71010; 71275; 80053; 82550; 83735; 83880; 84484; 85025; 85610; 85730; 93005; 93971; 99285; G0378; J1644; Q9967

== ENCOUNTER 2018-03-09 08:33 | Inpatient (IN) | payer OTHER, MEDICARE ==
[2018-03-09] VITALS (9 sets, daily range): BP systolic 146–219; BP diastolic 70–117; PULSE 51–69; RESP 15–20; TEMP 96.2–98.5; O2SAT 96–99
[~2018-03-09] VITALS: Ht 175.3 cm; Wt 85.9 kg
[~2018-03-09 08:33] MED LIST changes: -ALLE25CA5 PO; +AMLO5 PO; +ASPI-183 PO; -ASPI325T PO; -CHOL50006 PO; +D3400CAP PO; +FURO1TAB60 PO; -FURO1TAB93 PO; +ISOS10TA3 PO; -ISOS10TA35 PO; -KCL20 PO; -MULT1TAB46 PO; -NITR.4 SL; +NITR1SUB3 SL; +POTA-163 PO; -VITA100020 SL
[2018-03-09] MEDS ORDERED: NITROGLYCERIN 0.4 MG SL 25 TABS/BTL SL ONE (09:00)
[2018-03-09] MEDS ORDERED: ASPIRIN 325 MG TAB PO ONE (09:00)
[2018-03-09] MEDS ORDERED: hydrALAZINE HCL 20 MG/ML VIAL IV PUSH ONE ×2 (09:00→10:45)
[2018-03-09] MEDS ORDERED: ACET500T13 PO (09:11)
[2018-03-09] MEDS ORDERED: ASPI1TAB57 PO (09:11)
[2018-03-09 09:17] LABS: AUTOMATED NEUTROPHIL # 3.8 TH/MM3 (1.8-7.7); BASOPHIL # 0.2 TH/MM3 (0-0.2); BASOPHIL % 2.5 % (0.0-2.0); EOSINOPHIL # 0.2 TH/MM3 (0-0.4); EOSINOPHIL % 2.5 % (0.0-4.0); LYMPH % 27.8 % (9.0-44.0); LYMPHOCYTE # 1.8 TH/MM3 (1.0-4.8); MEAN CELL VOLUME 92.5 FL (80.0-100.0); MEAN CORPUSCULAR HEMOGLOBIN 31.6 PG (27.0-34.0); MEAN CORPUSCULAR HGB CONC 34.2 % (32.0-36.0); MEAN PLATELET VOLUME 8.4 FL (7.0-11.0); MONO % 7.7 % (0.0-8.0); MONOCYTE # 0.5 TH/MM3 (0-0.9); NEUT % 59.5 % (16.0-70.0); PLATELET COUNT 231 TH/MM3 (150-450); RED BLOOD COUNT 4.43 MIL/MM3 (4.00-5.30); RED CELL DISTRIBUTION WIDTH 12.6 % (11.6-17.2); WHITE BLOOD COUNT 6.5 TH/MM3 (4.0-11.0)
[2018-03-09] MEDS ORDERED: POTA10TA2 PO (09:19)
[2018-03-09] MEDS ORDERED: LOSA50TA PO (09:19)
[2018-03-09] MEDS ORDERED: OMEP20TA93 PO (09:19)
[2018-03-09] MEDS ORDERED: AZIT250T3 PO (09:19)
--- NOTE | 2018-03-09 09:28 | RADRPT ---
EXAM DATE: 03/09/2018 9:16 AM EDT AGE/SEX: 83 years / Female INDICATIONS: Hypertension, short of breath, light headed. CLINICAL DATA: This is the patient's initial encounter. Patient reports that signs and symptoms have been present for 1 day and indicates a pain score of 0/10. MEDICAL/SURGICAL HISTORY: Hypercholesterolemia. Pancreatitis. Carcinoma, uterine. TIA. Hyper tension. PVC. Myocardial infarction. CAD. COPD. GERD. Chronic kidney disease. Diabetic. Tonsillectom y. Tubal ligation. Cholecystectomy. Cardiac cath with stent placement. Hernia repair. Appendectomy . Hysterectomy. COMPARISON: [facility] [place], CHEST SINGLE AP, 10/01/2016. . FINDINGS: Portable AP view of the chest demonstrates a normal-sized cardiac silhouette with calcification of th e aorta. EKG lines overlie the patient. No effusion, consolidation, or pneumothorax is identified. Bacilio fausto and soft tissues demonstrate no acute finding. CONCLUSION: No acute cardiopulmonary abnormality is identified. Electronically signed by: Robert Davila MD 03/09/2018 9:26 AM EDT
[2018-03-09 09:48] LABS: CALCIUM 8.8 MG/DL (8.5-10.1)
[2018-03-09 09:49] LABS: BICARBONATE 24.4 MEQ/L (21.0-32.0); BLOOD UREA NITROGEN 19 MG/DL (7-18); GLUCOSE,RANDOM 93 MG/DL (74-106)
[2018-03-09 09:51] LABS: MAGNESIUM 2.5 MG/DL (1.5-2.5)
[2018-03-09 09:52] LABS: ALT (GPT) 20 U/L (10-53); GLOMERULAR FILTRATION RATE 36 ML/MIN (>89)
[2018-03-09 09:54] LABS: TOTAL BILIRUBIN ADULT 0.5 MG/DL (0.2-1.0); TOTAL PROTEIN 7.2 GM/DL (6.4-8.2)
[2018-03-09 09:55] LABS: ALKALINE PHOSPHATASE 84 U/L (45-117)
[2018-03-09 09:56] LABS: CHLORIDE 108 MEQ/L (98-107); SODIUM (NA) 141 MEQ/L (136-145)
[2018-03-09 09:57] LABS: TROPONIN I LESS THAN 0.02 NG/ML (0.02-0.05)
[2018-03-09 10:04] LABS: AST (GOT) 18 U/L (15-37)
--- NOTE | 2018-03-09 10:43 | PD ---
HPI Chief Complaint: Dizziness Time Seen by Provider: 08:48 Travel History International Travel<30 days: No Contact w/Intl Traveler<30days: No Traveled to known affect area: No History of Present Illness HPI 83-year-old female presented here for evaluation of dizziness and elevated blood pressure and chest pain. Patient went to her business administrator office today for regular checkup and when they checked her blood pressure her blood pressure was over 200 and they sent her to the ER. Patient and complaining of dizziness/ lightheadedness that comes and goes every time her blood pressure goes up, she complained of shortness of breath and chest pain. Pain is in the mid chest and sometimes radiates to the left side, rated 3 out of 10, comes and goes, nothing makes it better or worse. Symptoms started over the last 3 days slowly, no blurred vision, no motor or sensory loss, no speech problems. Patient has no leg swelling, she is compliant with her medications. PFSH Past Medical History Hx Anticoagulant Therapy: Yes (BABY ASA DAILY) Asthma: No Autoimmune Disease: No Blood Disorders: No Heart Rhythm Problems: Yes (PVC'S) Cancer: Yes (UTERINE-REMOVED) Cardiac Catheterization: Yes Cardiovascular Problems: Yes (CHOL, HTN, PVC'S) High Cholesterol: Yes Chest Pain: No COPD: Yes Cerebrovascular Accident: Yes Coronary Artery Disease: Yes Diabetes: Yes Patient Takes Glucophage: No Diminished Hearing: No Gastrointestinal Disorders: No GERD: Yes Glaucoma: Yes Hepatitis: No Hiatal Hernia: No Hypertension: Yes Musculoskeletal: Yes (DJD;) Psychiatric: No Respiratory: No Integumentary: No Myocardial Infarction: Yes Pancreatitis: Yes Sleep Apnea: No Thyroid Disease: No Tetanus Vaccination: < 5 Years ?: Not Menopausal: Yes Tubal Ligation: Yes Past Surgical History Abdominal Surgery: Yes (HERNIA REPAIR) Appendectomy: Yes Cholecystectomy: Yes Coronary Stent: Yes (X7) Hysterectomy: Yes Tonsillectomy: Yes Other Surgery: Yes (ABDOM. HERNIA) Social History Alcohol Use: Yes (WINE NIGHTLY) Tobacco Use: No Substance Use: No Allergies-Medications (Allergen,Severity, Reaction): Coded Allergies: Sulfa (Sulfonamide Antibiotics) (Unverified Allergy, Severe, Rash, 03/09/18 ) morphine (Unverified Allergy, Severe, AMS, 03/09/18) penicillin G (Unverified Allergy, Severe, Hives, 03/09/18) Uncoded Allergies: PENICILLIN (Allergy, Unknown, 05/29/03) Reported Meds & Prescriptions Reported Meds & Active Scripts Active Norvasc (Amlodipine Besylate) 5 Mg Tab 5 Mg PO DAILY Reported Losartan (Losartan Potassium) 50 Mg Tab 50 Mg PO HS Omeprazole 20 Mg Tab 20 Mg PO DAILY Azithromycin 250 Mg Tab 250 Mg PO DIRECTED Take 2 tabs (500 mg) on day 1 then 1 tab daily x 4 days. Potassium Chloride ER (Potassium Chloride) 10 Meq Tab 10 Meq PO DAILY Aspirin 81 (Aspirin) 81 Mg Tabdr 81 Mg PO DAILY APAP Extra Strength (Acetaminophen) 500 Mg Tab 500 Mg PO Q4-6H PRN Simvastatin 20 Mg Tab 20 Mg PO DAILY Nitroglycerin SL (Nitroglycerin) 0.4 Mg Subl 0.4 Mg SL DIRECTED PRN ONE TABLET UNDER THE TONGUE NEEDED FOR CHEST PAIN, MAY REPEAT EVERY FIVE MINUTES FOR A TOTAL OF 3 DOSES OR CALL 911 IF NO RELIEF Isosorbide Mononitrate 10 Mg Tab 10 Mg PO BID Take 2 doses 7 hours apart. Lasix (Furosemide) 40 Mg Tab 40 Mg PO DAILY D3 (Cholecalciferol) 400 Unit Cap 400 Mg PO DAILY Aspirin 325 Mg Tab 325 Mg PO HS Review of Systems Except as stated in HPI: all other systems reviewed are Neg Physical Exam Narrative GENERAL: Alert oriented 3 no acute distress. SKIN: Focused skin assessment warm/dry. HEAD: Atraumatic. Normocephalic. EYES: Pupils equal and round. No scleral icterus. No injection or drainage. ENT: No nasal bleeding or discharge. Mucous membranes pink and moist. NECK: Trachea midline. No JVD. CARDIOVASCULAR: Regular rate and rhythm. No murmur appreciated. RESPIRATORY: No accessory muscle use. Clear to auscultation. Breath sounds equal bilaterally. GASTROINTESTINAL: Abdomen soft, non-tender, nondistended. Hepatic and splenic margins not palpable. MUSCULOSKELETAL: No obvious deformities. No clubbing. No cyanosis. No edema. NEUROLOGICAL: Awake and alert. No obvious cranial nerve deficits. Motor grossly within normal limits. Normal speech. PSYCHIATRIC: Appropriate mood and affect; insight and judgment normal. Data Data Last Documented VS Vital Signs Date Time Temp Pulse Resp B/P (MAP) Pulse Ox O2 Delivery O2 Flow Rate FiO2 03/09/18 10:59 58 16 164/80 (108) 99 Room Air 03/09/18 08:54 98.5 Orders Orders Hydralazine Inj (Apresoline Inj) (03/09/18 09:00) Electrocardiogram (03/09/18 08:56) B-Type Natriuretic Peptide (03/09/18 08:56) Ckmb (Isoenzyme) Profile (03/09/18 08:56) Complete Blood Count With Diff (03/09/18 08:56) Comprehensive Metabolic Panel (03/09/18 08:56) D-Dimer (03/09/18 08:56) Magnesium (Mg) (03/09/18 08:56) Troponin I (03/09/18 08:56) Lipase (03/09/18 08:56) Chest, Single Ap (03/09/18 08:56) Aspirin (Aspirin) (03/09/18 09:00) Nitroglycerin Sl (Nitrostat Sl) (03/09/18 09:00) Hydralazine Inj (Apresoline Inj) (03/09/18 10:45) Admit Order (Ed Use Only) (03/09/18 11:15) Labs Laboratory Tests Test 03/09/18 08:55 White Blood Count 6.5 TH/MM3 Red Blood Count 4.43 MIL/MM3 Hemoglobin 14.0 GM/DL Hematocrit 41.0 % Mean Corpuscular Volume 92.5 FL Mean Corpuscular Hemoglobin 31.6 PG Mean Corpuscular Hemoglobin Concent 34.2 % Red Cell Distribution Width 12.6 % Platelet Count 231 TH/MM3 Mean Platelet Volume 8.4 FL Neutrophils (%) (Auto) 59.5 % Lymphocytes (%) (Auto) 27.8 % Monocytes (%) (Auto) 7.7 % Eosinophils (%) (Auto) 2.5 % Basophils (%) (Auto) 2.5 % Neutrophils # (Auto) 3.8 TH/MM3 Lymphocytes # (Auto) 1.8 TH/MM3 Monocytes # (Auto) 0.5 TH/MM3 Eosinophils # (Auto) 0.2 TH/MM3 Basophils # (Auto) 0.2 TH/MM3 CBC Comment DIFF FINAL Differential Comment D-Dimer Quantitative (PE/DVT) 0.99 MG/L FEU Blood Urea Nitrogen 19 MG/DL Creatinine 1.40 MG/DL Random Glucose 93 MG/DL Total Protein 7.2 GM/DL Albumin 4.0 GM/DL Calcium Level 8.8 MG/DL Magnesium Level 2.5 MG/DL Alkaline Phosphatase 84 U/L Aspartate Amino Transf (AST/SGOT) 18 U/L Alanine Aminotransferase (ALT/SGPT) 20 U/L Total Bilirubin 0.5 MG/DL Sodium Level 141 MEQ/L Potassium Level 4.1 MEQ/L Chloride Level 108 MEQ/L Carbon Dioxide Level 24.4 MEQ/L Anion Gap 9 MEQ/L Estimat Glomerular Filtration Rate 36 ML/MIN Total Creatine Kinase 88 U/L Troponin I LESS THAN 0.02 NG/ML B-Type Natriuretic Peptide 162 PG/ML Lipase 203 U/L MDM Medical Decision Making Medical Screen Exam Complete: Yes Emergency Medical Condition: Yes Differential Diagnosis Hypertensive emergency, hypertensive urgency, PE, acute coronary syndrome. Narrative Course This is an 83-year-old female presented ER for evaluation of dizziness and elevated blood pressure. Patient when arrived at the ER she had blood pressure over 200, she is given hydralazine 2 times and went down. EKG shows no ST segment elevation or depression but multiple PVCs. Patient had elevated d-dimer , low GFR and will need to get a VQ scan to rule out PE as a source of shortness of breath. Patient symptoms improved after controlling her blood pressure in the ER. I believe the patient will benefit from 23 hour observation to rule out acute coronary syndrome and PE. Diagnosis Primary Impression: Hypertensive urgency Admitting Information Admitting Physician Requests: Admit Condition: Stable Charlie Dai MD Mar 09, 2018 10:43
[2018-03-09] MEDS ORDERED: MAGNESIUM HYDROXIDE SUSP 30 ML CUP PO PRN (11:30)
[2018-03-09] MEDS ORDERED: NALOXONE HCL 0.4 MG/ML AMP IV PUSH PRN (11:30)
[2018-03-09] MEDS ORDERED: BISACODYL 10 MG SUPP RECTAL PRN (11:30)
[2018-03-09] MEDS ORDERED: LACTULOSE SYRUP 20 GM/30 ML CUP PO PRN (11:30)
[2018-03-09] MEDS ORDERED: SODIUM CHLORIDE 0.9% FLUSH 10 ML FLUSH IV FLUSH PRN (11:30)
[2018-03-09] MEDS ORDERED: ACETAMINOPHEN 325 MG TAB PO PRN (11:30)
[2018-03-09] MEDS ORDERED: SENNOSIDES 8.6 MG TAB PO PRN (11:30)
--- NOTE | 2018-03-09 15:59 | HHI.HP ---
HPI Service [facility] Primary Care Physician Alejandro Burton MD Admission Diagnosis HYPERTENSIVE URGENCY, CHEST PAIN R/O ME Diagnoses: Chief Complaint: Hypertensive urgency, chest pain Travel History International Travel<30 Days: No Contact w/Intl Traveler <30 Da: No Traveled to Known Affected Are: No History of Present Illness Ms. Castelan is a pleasant 83-year-old female with a history of coronary artery disease, hypertension who presents to the emergency department on 03/09/2018 on the advice of her upper tier due to hypertensive urgency. Patient has a history of coronary artery disease and 7 stent placement. She went to her upper tier Dr. Hair at [facility] this morning for her regular checkup. At the upper tier's office her blood pressure was in the 220s systolic. Patient reported feeling some chest discomfort as well. Her upper tier advised her to come to the emergency department. Patient denies any dyspnea, fever or chills. No changes in bowel or bladder habits. Of note she has been under a lot of stress due to her daughter's health. Review of Systems Except as stated in HPI: all other systems reviewed are Neg Past Family Social History Past Medical History Coronary artery disease, hypercholesterolemia, hypertension, uterine cancer Past Surgical History Hysterectomy, hernia repair Reported Medications Norvasc (Amlodipine Besylate) 5 Mg Tab 5 Mg PO DAILY Reported Losartan (Losartan Potassium) 50 Mg Tab 50 Mg PO HS Omeprazole 20 Mg Tab 20 Mg PO DAILY Azithromycin 250 Mg Tab 250 Mg PO DIRECTED Take 2 tabs (500 mg) on day 1 then 1 tab daily x 4 days. Potassium Chloride ER (Potassium Chloride) 10 Meq Tab 10 Meq PO DAILY Aspirin 81 (Aspirin) 81 Mg Tabdr 81 Mg PO DAILY APAP Extra Strength (Acetaminophen) 500 Mg Tab 500 Mg PO Q4-6H PRN Simvastatin 20 Mg Tab 20 Mg PO DAILY Nitroglycerin SL (Nitroglycerin) 0.4 Mg Subl 0.4 Mg SL DIRECTED PRN ONE TABLET UNDER THE TONGUE NEEDED FOR CHEST PAIN, MAY REPEAT EVERY FIVE MINUTES FOR A TOTAL OF 3 DOSES OR CALL 911 IF NO RELIEF Isosorbide Mononitrate 10 Mg Tab 10 Mg PO BID Take 2 doses 7 hours apart. Lasix (Furosemide) 40 Mg Tab 40 Mg PO DAILY D3 (Cholecalciferol) 400 Unit Cap 400 Mg PO DAILY Aspirin 325 Mg Tab 325 Mg PO HS Allergies: Coded Allergies: Sulfa (Sulfonamide Antibiotics) (Unverified Allergy, Severe, Rash, 03/09/18 ) morphine (Unverified Allergy, Severe, AMS, 03/09/18) penicillin G (Unverified Allergy, Severe, Hives, 03/09/18) Uncoded Allergies: PENICILLIN (Allergy, Unknown, 05/29/03) Family History Grandparents - CAD, Alzheimer's and Parkinson's. Social History Patient drinks wine nightly, denies using tobacco or illicit drugs. Physical Exam Vital Signs Vital Signs Date Time Temp Pulse Resp B/P (MAP) Pulse Ox O2 Delivery O2 Flow Rate FiO2 03/09/18 13:22 96.2 64 18 180/70 (106) 99 03/09/18 11:44 60 16 168/83 (111) 98 03/09/18 10:59 58 16 164/80 (108) 99 Room Air 03/09/18 10:37 55 16 191/88 (122) 99 Room Air 03/09/18 09:12 69 16 155/77 (103) 96 Room Air 03/09/18 08:54 98.5 64 16 219/117 (151) 97 03/09/18 08:42 16 97 Physical Exam GENERAL: This is a well-nourished, well-developed patient, in no apparent distress. SKIN: No rashes, ecchymoses or lesions. Warm and dry. HEAD: Atraumatic. Normocephalic. No temporal or scalp tenderness. EYES: Pupils equal round and reactive. No injection or drainage. ENT: Nose without bleeding, purulent drainage or septal hematoma. Airway patent. NECK: Trachea midline. No lymphadenopathy. Supple, nontender, no meningeal signs. CARDIOVASCULAR: Regular rate and rhythm without murmurs, gallops, or rubs. No JVD. RESPIRATORY: Clear to auscultation. Breath sounds equal bilaterally. No wheezes , rales, or rhonchi. GASTROINTESTINAL: Abdomen soft, non-tender, nondistended. No guarding. MUSCULOSKELETAL: Extremities without clubbing, cyanosis, or edema. NEUROLOGICAL: Awake and alert. Cranial nerves II through XII intact. No focal neurological deficits. Normal speech. Laboratory Laboratory Tests Test 03/09/18 08:55 White Blood Count 6.5 Red Blood Count 4.43 Hemoglobin 14.0 Hematocrit 41.0 Mean Corpuscular Volume 92.5 Mean Corpuscular Hemoglobin 31.6 Mean Corpuscular Hemoglobin Concent 34.2 Red Cell Distribution Width 12.6 Platelet Count 231 Mean Platelet Volume 8.4 Neutrophils (%) (Auto) 59.5 Lymphocytes (%) (Auto) 27.8 Monocytes (%) (Auto) 7.7 Eosinophils (%) (Auto) 2.5 Basophils (%) (Auto) 2.5 Neutrophils # (Auto) 3.8 Lymphocytes # (Auto) 1.8 Monocytes # (Auto) 0.5 Eosinophils # (Auto) 0.2 Basophils # (Auto) 0.2 CBC Comment DIFF FINAL Differential Comment D-Dimer Quantitative (PE/DVT) 0.99 Blood Urea Nitrogen 19 Creatinine 1.40 Random Glucose 93 Total Protein 7.2 Albumin 4.0 Calcium Level 8.8 Magnesium Level 2.5 Alkaline Phosphatase 84 Aspartate Amino Transf (AST/SGOT) 18 Alanine Aminotransferase (ALT/SGPT) 20 Total Bilirubin 0.5 Sodium Level 141 Potassium Level 4.1 Chloride Level 108 Carbon Dioxide Level 24.4 Anion Gap 9 Estimat Glomerular Filtration Rate 36 Total Creatine Kinase 88 Troponin I LESS THAN 0.02 B-Type Natriuretic Peptide 162 Lipase 203 Result Diagram: 03/09/18 0803/09/18 0855 Imaging Last Impressions Chest X-Ray 03/09/18 0856 Signed Impressions: CONCLUSION: No acute cardiopulmonary abnormality is identified. Caprini VTE Risk Assessment Caprini VTE Risk Assessment: Mod/High Risk (score >= 2) Caprini Risk Assessment Model Point Value = 1 Point Value = 2 Point Value = 3 Point Value = 5 Age 41-60 Minor surgery BMI > 25 kg/m2 Swollen legs Varicose veins or History of unexplained or recurrent spontaneous Oral contraceptives or hormone replacement Sepsis (< 1 month) Serious lung disease, including pneumonia (< 1 month) Abnormal pulmonary function Acute myocardial infarction Congestive heart failure (< 1 month) History of inflammatory bowel disease Medical patient at bed rest Age 61-74 Arthroscopic surgery Major open surgery (> 45 min) Laparoscopic surgery (> 45 min) Malignancy Confined to bed (> 72 hours) Immobilizing plaster cast Central venous access Age >= 75 History of VTE Family history of VTE Factor V Leiden Prothrombin [id number] Lupus anticoagulant Anticardiolipin antibodies Elevated serum homocysteine Heparin-induced thrombocytopenia Other congenital or acquired thrombophilia Stroke (< 1 month) Elective arthroplasty Hip, pelvis, or leg fracture Acute spinal cord injury (< 1 month) Prophylaxis Regimen Total Risk Factor Score Risk Level Prophylaxis Regimen 0-1 Low Early ambulation 2 Moderate Order ONE of the following: *Sequential Compression Device (SCD) *Heparin 5000 units SQ BID 3-4 Higher Order ONE of the following medications: *Heparin 5000 units SQ TID *Enoxaparin/Lovenox 40 mg SQ daily (WT < 150 kg, CrCl > 30 mL/min) *Enoxaparin/Lovenox 30 mg SQ daily (WT < 150 kg, CrCl > 10-29 mL/min) *Enoxaparin/Lovenox 30 mg SQ BID (WT < 150 kg, CrCl > 30 mL/min) AND/OR *Sequential Compression Device (SCD) 5 or more Highest Order ONE of the following medications: *Heparin 5000 units SQ TID (Preferred with Epidurals) *Enoxaparin/Lovenox 40 mg SQ daily (WT < 150 kg, CrCl > 30 mL/min) *Enoxaparin/Lovenox 30 mg SQ daily (WT < 150 kg, CrCl > 10-29 mL/min) *Enoxaparin/Lovenox 30 mg SQ BID (WT < 150 kg, CrCl > 30 mL/min) AND *Sequential Compression Device (SCD) Assessment and Plan Problem List: (1) Hypertensive urgency ICD Code: I16.0 - Hypertensive urgency (2) Acute kidney injury ICD Code: N17.9 - Acute kidney failure, unspecified (3) Coronary artery disease ICD Code: I25.9 - Coronary artery disease Status: Acute Assessment and Plan Ms. Castelan is a pleasant 83-year-old female with a history of coronary artery disease who presented to the emergency department due to hypertensive urgency. Patient was seen by upper tier who advised patient to come to the emergency department. Hypertensive urgency -Initial blood pressure over 200 systolic. Patient received 2 doses of hydralazine in the ED. -Home medications include amlodipine 5 mg daily, losartan 50 mg daily. -We will switch amlodipine to nifedipine 30 mg Qday - May consider BID dosing. -Patient also takes furosemide but states furosemide has not been effective recently. Acute kidney injury -Creatinine 1.40 on presentation. This could be related to Lasix use. -We will hold off using Lasix for now. Patient does not appear to be volume overloaded. -If needed we will consider torsemide low-dose. Coronary artery disease -History of 7 stent placement in the past. -Due to chest pain will check troponins 2 more times. -Per patient, apparently her upper tier has told her to take aspirin 81 mg in the morning and 325 mg at night. -She does not want to change aspirin regimen without discussing with her upper tier. -Continue isosorbide mononitrate 10 mg p.o. twice daily Full code. Ambulation, SCDs. Ling Smyth DO Mar 09, 2018 15:59
[2018-03-09] MEDS ORDERED: NIFEdipine 30 MG SUSTAINED RELEASE TAB PO ONE (16:30)
--- NOTE | 2018-03-09 17:07 | EKG ---
Date Performed: 03/09/2018 Time Performed: 08:40:30 PTAGE: 83 years EKG: Sinus rhythm WITH FREQUENT VENTRICULAR PREMATURE COMPLEXES MODERATE ST DEPRESSION ABNORMAL ECG PREVIOUS TRACING 10/02/2016 Since the previous tracing, no significant change noted DOCTOR: Violet Deshpande Interpretating Date/Time 03/09/2018 17:03:24
[2018-03-09 20:41] LABS: TROPONIN I LESS THAN 0.02 NG/ML (0.02-0.05)
[2018-03-09] MEDS ORDERED: ASPIRIN 325 MG TAB PO SCH (21:00)
[2018-03-09] MEDS ORDERED: LOSARTAN 50 MG TAB PO SCH (21:00)
[2018-03-09] MEDS ORDERED: PILL SPLITTER OTHER PRN (22:45)
[2018-03-09] MEDS: ISOSORBIDE MONONITRATE 20 MG TAB PO SCH (22:47)
[2018-03-09] MEDS: SODIUM CHLORIDE 0.9% FLUSH 10 ML FLUSH IV FLUSH SCH (22:49)
[2018-03-10] VITALS: BP 164/88; PULSE 54; RESP 20; TEMP 96.8; O2SAT 97
[2018-03-10 04:00] VITALS: BP 178/90; PULSE 56; RESP 20; TEMP 96.7; O2SAT 96
--- NOTE | 2018-03-10 07:27 | EKG ---
Date Performed: 03/09/2018 Time Performed: 20:45:22 PTAGE: 83 years EKG: Sinus rhythm WITH OCCASIONAL VENTRICULAR PREMATURE COMPLEXES MINIMAL ST DEPRESSION BORDERLINE ECG PREVIOUS TRACING : 03/09/2018 08.40 DOCTOR: Angelo Martínez Interpretating Date/Time 03/10/2018 07:25:04
[2018-03-10 07:50] VITALS: BP 170/78; PULSE 62; RESP 20; TEMP 96.8; O2SAT 97
[2018-03-10] MEDS: ISOSORBIDE MONONITRATE 20 MG TAB PO SCH (08:33)
[2018-03-10] MEDS: SODIUM CHLORIDE 0.9% FLUSH 10 ML FLUSH IV FLUSH SCH (08:36)
[2018-03-10] MEDS ORDERED: PANTOPRAZOLE SOD 20 MG DELAYED RELEASE TAB PO SCH (09:00)
[2018-03-10] MEDS ORDERED: ASPIRIN EC 81 MG TABEC PO SCH (09:00)
[2018-03-10] MEDS ORDERED: CHOLECALCIFEROL (VIT D3) 400 UNIT TAB PO SCH (09:00)
[2018-03-10] MEDS ORDERED: POTASSIUM CHLORIDE 10 MEQ CONTROLLED RELEASE TAB PO SCH (09:00)
[2018-03-10] MEDS ORDERED: NIFEdipine 30 MG SUSTAINED RELEASE TAB PO SCH (09:00)
[2018-03-10] MEDS ORDERED: amLODIPine BESYLATE 5 MG TAB PO SCH (09:00)
[2018-03-10] MEDS ORDERED: FUROSEMIDE 40 MG TAB PO SCH (09:00)
--- NOTE | 2018-03-10 09:21 | HHI.PR ---
Subjective Remarks Follow up for hypertensive urgency. Patient is currently doing well. No CP, SOB , fever, chills. Wants to go home so that she can take her of her daughter. Objective Vitals Vital Signs Date Time Temp Pulse Resp B/P (MAP) Pulse Ox O2 Delivery O2 Flow Rate FiO2 03/10/18 04:00 96.7 56 20 178/90 (119) 96 03/10/18 00:00 96.8 54 20 164/88 (113) 97 03/09/18 22:00 51 03/09/18 20:00 96.5 55 20 164/94 (117) 98 Automatic Cuff 03/09/18 18:20 97.9 64 15 146/70 (95) 99 03/09/18 13:22 96.2 64 18 180/70 (106) 99 03/09/18 11:44 60 16 168/83 (111) 98 03/09/18 10:59 58 16 164/80 (108) 99 Room Air 03/09/18 10:37 55 16 191/88 (122) 99 Room Air I/O 03/09/18 03/09/18 03/09/18 03/10/18 03/10/18 03/10/18 07:00 15:00 23:00 07:00 15:00 23:00 Intake Total 250 ml 240 ml Balance 250 ml 240 ml Intake Oral 250 ml 240 ml # Voids 4 # Bowel Movements 0 Result Diagram: 03/09/18 0855 03/09/18 0855 Imaging Last Impressions Chest X-Ray 03/09/18 0856 Signed Impressions: CONCLUSION: No acute cardiopulmonary abnormality is identified. Objective Remarks GENERAL: Alert, Oriented x 3, NAD. SKIN: Warm and dry. HEAD: Normocephalic. EYES: No scleral icterus. No injection or drainage. NECK: Supple, trachea midline. No JVD or lymphadenopathy. CARDIOVASCULAR: Regular rate and rhythm without murmurs, gallops, or rubs. RESPIRATORY: Breath sounds equal bilaterally. No accessory muscle use. GASTROINTESTINAL: Abdomen soft, non-tender, nondistended. MUSCULOSKELETAL: No cyanosis, or edema. BACK: Nontender without obvious deformity. No CVA tenderness. Procedures None. A/P Problem List: (1) Hypertensive urgency ICD Code: I16.0 - Hypertensive urgency (2) Acute kidney injury ICD Code: N17.9 - Acute kidney failure, unspecified (3) Coronary artery disease ICD Code: I25.9 - Coronary artery disease Status: Acute Assessment and Plan Ms. Castelan is a pleasant 83-year-old female with a history of coronary artery disease who presented to the emergency department due to hypertensive urgency. Patient was seen by auto suspension and steering mechanic who advised patient to come to the emergency department. Hypertensive urgency -Initial blood pressure over 200 systolic. Patient received 2 doses of hydralazine in the ED. -Home medications include amlodipine 5 mg daily, losartan 50 mg daily. -Switched to Nifedipine 60mg Qday. -Hold Lasix for now. Acute kidney injury -Creatinine 1.40 on presentation. This could be related to Lasix use. -We will hold off using Lasix for now. Patient does not appear to be volume overloaded. Coronary artery disease -History of 7 stent placement in the past. -Due to chest pain will check troponins 2 more times. -Per patient, apparently her auto suspension and steering mechanic has told her to take aspirin 81 mg in the morning and 325 mg at night. -She does not want to change aspirin regimen without discussing with her auto suspension and steering mechanic. -Continue isosorbide mononitrate 10 mg p.o. twice daily Full code. Ambulation, SCDs. Discharge patient to home Condition on discharge: Improved Heart healthy Diet as tolerated Ad Hiwot activity Rx written: Nifedipine 60mg Qday Follow-up with primary care physician within one week and BMP in one week. Ling Smyth DO Mar 10, 2018 09:21
[2018-03-10] MEDS ORDERED: NIFE60TA58 PO (09:25)
[2018-03-10 10:29] LABS: CALCIUM 8.8 MG/DL (8.5-10.1)
[2018-03-10 10:30] LABS: BICARBONATE 23.2 MEQ/L (21.0-32.0)
[2018-03-10 10:33] LABS: CREATININE 1.2 MG/DL (0.50-1.00)
[2018-03-10 11:00] VITALS: BP 142/68; PULSE 55; RESP 20; TEMP 96.4; O2SAT 96
== END 2018-03-10 12:54 | disposition home or self-care (01) | DRG 305 ==
LOC: PHED 08:33 → PHEDA 11:15 → PH3A 11:56 → OBSVTOIN 03-10 10:15
PROVIDERS: ADMIT Hospitalist; ATTEND Hospitalist
DX: I16.0 Hypertensive urgency (principal); N17.9 Acute kidney failure, unspecified; J44.9 Chronic obstructive pulmonary disease, unspecified; E11.9 Type 2 diabetes mellitus without complications; I49.3 Ventricular premature depolarization; I25.10 Atherosclerotic heart disease of native coronary artery without angina pectoris; K21.9 Gastro-esophageal reflux disease without esophagitis; I10 Essential (primary) hypertension; E78.00 Pure hypercholesterolemia, unspecified; M19.90 Unspecified osteoarthritis, unspecified site; H40.9 Unspecified glaucoma; Z86.73 Personal history of transient ischemic attack (TIA), and cerebral infarction without residual deficits; Z79.82 Long term (current) use of aspirin; I25.2 Old myocardial infarction; Z95.5 Presence of coronary angioplasty implant and graft; Z85.42 Personal history of malignant neoplasm of other parts of uterus; Z79.899 Other long term (current) drug therapy
CPT/HCPCS: 71045; 80048; 80053; 82550; 83690; 83735; 83880; 84484; 85025; 85379; 93005; J0360

== ENCOUNTER 2018-07-24 08:35 | Observation (INO) ==
[2018-07-24 09:19] LABS: Baso # (Auto) 0.2 th/mm3 (0.0-0.2); Baso % (Auto) 2.3 % (0.0-2.0); Eos # (Auto) 0.3 th/mm3 (0.0-0.4); Eos % (Auto) 4.2 % (0.0-4.0); Hematocrit 43.1 % (35.0-46.0); Hemoglobin 14.6 gm/dL (11.6-15.3); Lymph % (Auto) 26.6 % (9.0-44.0); Mean Corpuscular HGB Conc 33.9 % (32.0-36.0); Mean Corpuscular Hemoglobin 30.7 pg (27.0-34.0); Mean Corpuscular Volume 90.7 fL (80.0-100.0); Mean Platelet Volume 8.7 fL (7.0-11.0); Mono # (Auto) 0.6 th/mm3 (0.0-0.9); Mono % (Auto) 8.6 % (0.0-8.0); Neut # (Auto) 4.4 th/mm3 (1.8-7.7); Neut % (Auto) 58.3 % (16.0-70.0); Platelet Count 264 th/mm3 (150-450); Red Blood Count 4.75 mil/mm3 (4.00-5.30); Red Cell Distribution Width 12.6 % (11.6-17.2); White Blood Count 7.5 th/mm3 (4.0-11.0)
[2018-07-24 09:29] LABS: Activated Partial Thrombo Time 26.3 sec (23.4-31.7)
--- NOTE | 2018-07-24 09:30 | XR ---
EXAM DATE: 07/24/2018 9:27 AM EDT AGE/SEX: 83 years / Female INDICATIONS: Low heart rate, cardiac disease CLINICAL DATA: This is the patient's initial encounter. Patient reports that signs and symptoms have been present for 1 day and indicates a pain score of 0/10. MEDICAL/SURGICAL HISTORY: . Hypercholesterolemia. Pancreatitis. Carcinoma, uterine. TIA. Hypert ension. PVC. Myocardial infarction. CAD. COPD. GERD. Chronic kidney disease. Diabetic. . Tonsillect wolf. Tubal ligation. Cholecystectomy. Cardiac cath with stent placement. Hernia repair. Appendectomy. Hysterectomy. COMPARISON: [facility], CHEST SINGLE AP, 03/09/2018. . FINDINGS: Single AP view of the chest. The lungs are clear. Cardiomediastinal silhouette within nor mal limits. No evidence of pleural effusion or pneumothorax. CONCLUSION: No acute cardiopulmonary disease identified. Electronically signed by: Ty Matson MD 07/24/2018 9:29 AM EDT
[2018-07-24 09:51] LABS: Magnesium 2.3 mg/dL (1.5-2.5)
[2018-07-24 09:53] LABS: Albumin 4.4 g/dL (3.4-5.0); Calcium 9.2 mg/dL (8.5-10.1); Carbon Dioxide 24.8 meq/L (21.0-32.0); Glucose,Random 89 mg/dL (74-106)
[2018-07-24 09:54] LABS: Blood Urea Nitrogen 19 mg/dL (7-18)
[2018-07-24 09:56] LABS: Alanine Aminotransferase 20 U/L (10-53)
[2018-07-24 09:57] LABS: Aspartate Aminotransferase 17 U/L (15-37); Glomerular Filtration Rate 33 mL/min (>89)
[2018-07-24 09:58] LABS: Total Protein 7.8 g/dL (6.4-8.2)
[2018-07-24 09:59] LABS: Alkaline Phosphatase 98 U/L (45-117)
[2018-07-24 10:00] LABS: Anion Gap 11 meq/L (5-15); Chloride 105 meq/L (98-107); Potassium 3.5 meq/L (3.5-5.1); Sodium 141 meq/L (136-145)
--- NOTE | 2018-07-24 10:31 | ED ---
HPI General Chief complaint: Arrhythmia / Palpitations Stated complaint: Heart palpitations x lat night Time Seen by Provider: 07/24/18 08:55 History of Present Illness HPI narrative: 83-year-old female history of hypertension, coronary artery disease here for evaluation of chest pain and palpitations. Patient says that she had 7 stents placed in the past, her inspector poising is Dr. Hair, she was here back in February for hypertensive emergency. She is here today for palpitations that she started noticing last night, palpitations are associated with PVCs that she was able to feel and describes as "if her heart wants to stop ", patient also reports bradycardia of a heart rate in the 50s which is unusual for her. She felt chest discomfort last night, rated 3 out of 10, mid chest, occurred with the palpitations, no diaphoresis. Symptoms occurred at rest. She woke up this morning having palpitations as well so she decided to come to the ER. She says that her blood pressure is not well controlled. She currently has no chest pain. Related Data Home Medications Medication Instructions Recorded Confirmed amlodipine 5 mg PO DAILY 07/24/18 07/24/18 aspirin 325 mg PO DAILY 07/24/18 07/24/18 famotidine 20 mg PO DAILY 07/24/18 07/24/18 furosemide [Lasix] 40 mg PO DAILY 07/24/18 07/24/18 isosorbide mononitrate 10 mg PO BID 07/24/18 07/24/18 losartan 50 mg PO DAILY 07/24/18 07/24/18 nitroglycerin [Nitrostat] 0.4 mg SUBLINGUAL Q5-15M PRN 07/24/18 07/24/18 simvastatin 20 mg PO QPM 07/24/18 07/24/18 Allergies Allergy/AdvReac Type Severity Reaction Status Date / Time morphine Allergy Severe AMS Verified 07/24/18 09:01 penicillin G Allergy Severe Hives Verified 07/24/18 09:01 Sulfa (Sulfonamide Allergy Severe Rash Verified 07/24/18 09:01 Antibiotics) atorvastatin [From Lipitor] Allergy Intermediate Nausea/Vomi Verified 07/24/18 09:01 ting PENICILLIN Allergy Unknown Anaphylaxis Uncoded 07/24/18 09:01 Review of Systems ROS: all other systems reviewed are negative [facility] Family History Family History Other Family history non-contributory Social History Social History Substance History: No History of Abuse Second Hand Smoke Exposure: No Smoking Status: Former smoker Tobacco Type: Cigarettes How Often Do You Have a Drink Containing Alcohol: 4 or more times a week Recent Travel in [facility] within the Last 8 Weeks: No Recent Out of Country Travel within the Last 8 Weeks: No Immunization History Tetanus Immunization: <5 Years Exam Narrative Exam Narrative: GENERAL: Alert oriented x3 no acute distress. SKIN: Focused skin assessment warm/dry. HEAD: Atraumatic. Normocephalic. EYES: Pupils equal and round. No scleral icterus. No injection or drainage. ENT: No nasal bleeding or discharge. Mucous membranes pink and moist. NECK: Trachea midline. No JVD. CARDIOVASCULAR: Regular rate and rhythm. No murmur appreciated. RESPIRATORY: No accessory muscle use. Clear to auscultation. Breath sounds equal bilaterally. GASTROINTESTINAL: Abdomen soft, non-tender, nondistended. Hepatic and splenic margins not palpable. MUSCULOSKELETAL: No obvious deformities. No clubbing. No cyanosis. No edema. NEUROLOGICAL: Awake and alert. No obvious cranial nerve deficits. Motor grossly within normal limits. Normal speech. PSYCHIATRIC: Appropriate mood and affect; insight and judgment normal. Course Initial Documented Vital Signs Temperature 98.3 F 07/24/18 08:44 Pulse Rate 47 L 07/24/18 08:44 Respiratory Rate 16 07/24/18 08:44 Pulse Oximetry 98 07/24/18 08:44 Last Documented Vital Signs Temperature 97.3 F L 07/25/18 08:00 Pulse Rate 53 L 07/25/18 08:00 Respiratory Rate 16 07/25/18 08:00 Blood Pressure 160/70 H 07/25/18 08:00 Pulse Oximetry 96 07/25/18 08:00 Medical Decision Making [facility] Narrative Medical decision making narrative: 83 female extensive CAD history with 7 stents , hypertension here for evaluation of bradycardia, she has discomfort last night and palpitations. EKG remarkable for normal sinus rhythm with a heart rate of 65 and multiple PVCs. No [address] segment elevation or depression. Her troponin is negative, BNP is normal, chest x-ray is unremarkable. Given her extensive CAD history I believe the patient will benefit from 23-hour observation to evaluate her chest discomfort as well as her multiple PVCs that were evident on EKG. Medical Screen Exam Complete: Yes Emergency Medical Condition: Yes Lab Data Result diagrams: 07/24/18 09:10 11/03/18 09:10 Lab Results 07/24/18 07/24/18 07/24/18 Range/Units 09:10 09:10 09:10 CBC w Diff Auto diff final WBC 7.5 (4.0-11.0) th/mm3 RBC 4.75 (4.00-5.30) mil/mm3 Hgb 14.6 (11.6-15.3) gm/dL Hct 43.1 (35.0-46.0) % MCV 90.7 (80.0-100.0) fL MCH 30.7 (27.0-34.0) pg MCHC 33.9 (32.0-36.0) % RDW 12.6 (11.6-17.2) % Plt Count 264 (150-450) th/mm3 MPV 8.7 (7.0-11.0) fL Neut % (Auto) 58.3 (16.0-70.0) % Lymph % (Auto) 26.6 (9.0-44.0) % Webb % (Auto) 8.6 H (0.0-8.0) % Eos % (Auto) 4.2 H (0.0-4.0) % Baso % (Auto) 2.3 H (0.0-2.0) % Neut # (Auto) 4.4 (1.8-7.7) th/mm3 Lymph # (Auto) 2.0 (1.0-4.8) th/mm3 Webb # (Auto) 0.6 (0.0-0.9) th/mm3 Eos # (Auto) 0.3 (0.0-0.4) th/mm3 Baso # (Auto) 0.2 (0.0-0.2) th/mm3 WBC Differential . Differential Comment . PT (9.8-11.6) sec INR Ratio APTT (23.4-31.7) sec Sodium 141 (136-145) meq/L Potassium 3.5 (3.5-5.1) meq/L Chloride 105 (98-107) meq/L Carbon Dioxide 24.8 (21.0-32.0) meq/L Anion Gap 11 (5-15) meq/L BUN 19 H (7-18) mg/dL Creatinine 1.50 H (0.50-1.00) mg/dL Estimated GFR 33 L (>89) mL/min POC Glucose (68-110) mg/dl Random Glucose 89 (74-106) mg/dL Calcium 9.2 (8.5-10.1) mg/dL Magnesium (1.5-2.5) mg/dL Total Bilirubin 0.7 (0.2-1.0) mg/dL AST 17 (15-37) U/L ALT 20 (10-53) U/L Alkaline Phosphatase 98 (45-117) U/L Total Creatine Kinase (26-192) U/L Troponin I Less than 0.02 L (0.02-0.05) ng/mL B-Natriuretic Peptide 51 (0-100) pg/mL Total Protein 7.8 (6.4-8.2) g/dL Albumin 4.4 (3.4-5.0) g/dL 07/24/18 07/24/18 07/24/18 Range/Units 09:10 09:10 11:55 CBC w Diff WBC (4.0-11.0) th/mm3 RBC (4.00-5.30) mil/mm3 Hgb (11.6-15.3) gm/dL Hct (35.0-46.0) % MCV (80.0-100.0) fL MCH (27.0-34.0) pg MCHC (32.0-36.0) % RDW (11.6-17.2) % Plt Count (150-450) th/mm3 MPV (7.0-11.0) fL Neut % (Auto) (16.0-70.0) % Lymph % (Auto) (9.0-44.0) % Webb % (Auto) (0.0-8.0) % Eos % (Auto) (0.0-4.0) % Baso % (Auto) (0.0-2.0) % Neut # (Auto) (1.8-7.7) th/mm3 Lymph # (Auto) (1.0-4.8) th/mm3 Webb # (Auto) (0.0-0.9) th/mm3 Eos # (Auto) (0.0-0.4) th/mm3 Baso # (Auto) (0.0-0.2) th/mm3 WBC Differential Differential Comment PT 10.0 (9.8-11.6) sec INR 1.0 Ratio APTT 26.3 (23.4-31.7) sec Sodium (136-145) meq/L Potassium (3.5-5.1) meq/L Chloride (98-107) meq/L Carbon Dioxide (21.0-32.0) meq/L Anion Gap (5-15) meq/L BUN (7-18) mg/dL Creatinine (0.50-1.00) mg/dL Estimated GFR (>89) mL/min POC Glucose (68-110) mg/dl Random Glucose (74-106) mg/dL Calcium (8.5-10.1) mg/dL Magnesium 2.3 (1.5-2.5) mg/dL Total Bilirubin (0.2-1.0) mg/dL AST (15-37) U/L ALT (10-53) U/L Alkaline Phosphatase (45-117) U/L Total Creatine Kinase 57 56 (26-192) U/L Troponin I Less than 0.02 L (0.02-0.05) ng/mL B-Natriuretic Peptide (0-100) pg/mL Total Protein (6.4-8.2) g/dL Albumin (3.4-5.0) g/dL 07/24/18 07/25/18 Range/Units 15:03 01:22 EST CBC w Diff WBC (4.0-11.0) th/mm3 RBC (4.00-5.30) mil/mm3 Hgb (11.6-15.3) gm/dL Hct (35.0-46.0) % MCV (80.0-100.0) fL MCH (27.0-34.0) pg MCHC (32.0-36.0) % RDW (11.6-17.2) % Plt Count (150-450) th/mm3 MPV (7.0-11.0) fL Neut % (Auto) (16.0-70.0) % Lymph % (Auto) (9.0-44.0) % Webb % (Auto) (0.0-8.0) % Eos % (Auto) (0.0-4.0) % Baso % (Auto) (0.0-2.0) % Neut # (Auto) (1.8-7.7) th/mm3 Lymph # (Auto) (1.0-4.8) th/mm3 Webb # (Auto) (0.0-0.9) th/mm3 Eos # (Auto) (0.0-0.4) th/mm3 Baso # (Auto) (0.0-0.2) th/mm3 WBC Differential Differential Comment PT (9.8-11.6) sec INR Ratio APTT (23.4-31.7) sec Sodium (136-145) meq/L Potassium (3.5-5.1) meq/L Chloride (98-107) meq/L Carbon Dioxide (21.0-32.0) meq/L Anion Gap (5-15) meq/L BUN (7-18) mg/dL Creatinine (0.50-1.00) mg/dL Estimated GFR (>89) mL/min POC Glucose 86 (68-110) mg/dl Random Glucose (74-106) mg/dL Calcium (8.5-10.1) mg/dL Magnesium (1.5-2.5) mg/dL Total Bilirubin (0.2-1.0) mg/dL AST (15-37) U/L ALT (10-53) U/L Alkaline Phosphatase (45-117) U/L Total Creatine Kinase 53 (26-192) U/L Troponin I Less than 0.02 L (0.02-0.05) ng/mL B-Natriuretic Peptide (0-100) pg/mL Total Protein (6.4-8.2) g/dL Albumin (3.4-5.0) g/dL Imaging Data Radiologist's impression: Chest X-Ray 07/24/18 09:09 CONCLUSION: No acute cardiopulmonary disease identified. Myocardial Perfusion Scan Nuc Med 07/25/18 00:00 CONCLUSION: 1. No evidence of fixed or stress-induced reversible perfusion abnormalities. 2. Normal wall motion and ejection fraction. Discharge Plan Discharge Disposition Patient Disposition: 01 Discharge Home Discharge Condition Condition: Stable Discharge Order Discharge Orders: Discharge Order (Routine); Ordered 07/25/18 Ordered By: Urmila Fraire Discharge Details Anticipated Discharge Date: 07/25/18 Physicians Team ED Provider: Charlie Dai Primary Care Provider: Joe Burton Attending Provider: Hadley Baron Status ED Status: Left Department Discharge Information Discharge Date/Time: 07/24/18 12:43
[2018-07-24] MEDS ORDERED: Acetaminophen 500 MG Tablet PO PRN (11:11)
[2018-07-24] MEDS: Sod Chloride 0.9% Inj 1,000 ML IV.CONT SCH ×2 (11:15→23:30)
[2018-07-24 12:24] LABS: Creatine Kinase 56 U/L (26-192)
--- NOTE | 2018-07-24 12:30 | P.HP ---
History of Present Illness Primary Care Physician: Joe Burton MD Chief Complaint: Chest pain History of Present Illness: This is a pleasant 83-year-old female patient with a known medical history of CAD with multiple cardiac stents, hypertension, hyperlipidemia presented to the ED with complaints of chest pain and palpitations. Patient states that around 3 AM in the morning patient developed a midsternal chest tightness that was relieved with one nitroglycerin and to aspirin. She denies any associated nausea, vomiting, diaphoresis or shortness of breath. She characterizes the pain as tight in nature, lasted roughly 10 minutes and then went away on its own. Patient states she follows with Dr. Bates, has an appointment with him next month. Her last stress test was reportedly 5 years ago which was reportedly negative. She denies any recent illness including fever, chills, cough, shortness of breath, dumping, nausea, vomiting, diarrhea or dysuria. It should be noted that patient was hospitalized in February of this year for hypertensive emergency. She does admit to taking her medications as ordered. At the time of assessment chest pain has improved. She did have some caffeine this morning therefore test will be done tomorrow. - Diagnosis (1) Chest pain (2) Hypertension Review of Systems All other systems reviewed negative except as stated in HPI PMFSH - History History Provided By: Patient - Medical History Medical History: Medical History (Last Reviewed 07/24/18 @ 13:38 by Urmila Fraire) Bradycardia CAD (coronary artery disease) Calcification of artery Chest pain Chronic kidney disease (CKD) Colitis GERD (gastroesophageal reflux disease) Hyperlipemia Hyperuricemia Hypotension Insomnia Memory loss Mitral insufficiency Myocardial infarct UTI (urinary tract infection) Vitamin D deficiency - Surgical History Surgical History: Surgical History (Last Reviewed 07/24/18 @ 13:38 by Urmila Fraire) Hx of cardiac cath - Family History Family History: Family History (Last Updated 07/24/18 @ 13:39 by Urmila Fraire) Other Family history non-contributory - Social History I have reviewed the patient's Social History: Yes - Tobacco History Second Hand Smoke Exposure: No Tobacco Use In Past 30 Days: No Smoking Status: Former smoker Tobacco Type: Cigarettes - Alcohol History How Often Do You Have a Drink Containing Alcohol: 4 or more times a week - Travel History Recent Travel in the [facility] Within the Last 8 Weeks: No Recent Travel Out of the Country Within the Last 8 Weeks: No - Immunization History Tetanus Immunization: <5 Years Medications and Allergies Active Medications: Active Medications Acetaminophen (Tylenol) 500 mg PO Q4H PRN PRN Reason: HEADACHE Amlodipine Besylate (Norvasc) 5 mg PO DAILY CORIE Aspirin (Ecotrin) 81 mg PO DAILY CORIE Furosemide (Lasix) 40 mg PO DAILY CORIE Sodium Chloride (Ns Inj) 1,000 mls @ 100 mls/hr IV.CONT .Q10H CORIE Losartan Potassium (Cozaar) 50 mg PO DAILY CORIE Non-Formulary Medication (Isosorbide Mononitrate [Isosorbide Mononitrate]) 10 mg PO BID CORIE Non-Formulary Medication (Simvastatin [Simvastatin]) 20 mg PO QPM CORIE Ondansetron HCl (Zofran Inj) 4 mg IV.PUSH Q6H PRN PRN Reason: NAUSEA Sodium Chloride (Ns Flush) 2 ml IV.FLUSH BID CORIE Sodium Chloride (Ns Flush) 2 ml IV.FLUSH PRN PRN PRN Reason: FLUSH AFTER USING IV ACCESS Allergies Allergy/AdvReac Type Severity Reaction Status Date / Time morphine Allergy Severe AMS Verified 07/24/18 09:01 penicillin G Allergy Severe Hives Verified 07/24/18 09:01 Sulfa (Sulfonamide Allergy Severe Rash Verified 07/24/18 09:01 Antibiotics) atorvastatin [From Lipitor] Allergy Intermediate Nausea/Vomi Verified 07/24/18 09:01 ting PENICILLIN Allergy Unknown Anaphylaxis Uncoded 07/24/18 09:01 Home Medications Medication Instructions Recorded Confirmed Type amlodipine 5 mg PO DAILY 07/24/18 07/24/18 History aspirin 325 mg PO DAILY 07/24/18 07/24/18 History aspirin [Aspir-81] 81 mg PO DAILY 07/24/18 07/24/18 History famotidine 20 mg PO DAILY 07/24/18 07/24/18 History furosemide [Lasix] 40 mg PO DAILY 07/24/18 07/24/18 History isosorbide mononitrate 10 mg PO BID 07/24/18 07/24/18 History losartan 50 mg PO DAILY 07/24/18 07/24/18 History nitroglycerin [Nitrostat] 0.4 mg SUBLINGUAL Q5-15M PRN 11/03/18 11/03/18 History simvastatin 20 mg PO QPM 07/24/18 07/24/18 History Exam Vital signs: Vital Signs 07/24/18 08:44 07/24/18 09:03 07/24/18 10:07 Temperature 98.3 F Pulse Rate 47 L 65 63 Respiratory Rate 16 16 16 Blood Pressure 195/70 H 177/84 H Pulse Oximetry 98 97 98 Intake & Output 07/23/18 07/24/18 07/24/18 18:59 06:59 18:59 Weight 83 kg Narrative: GENERAL: Well-developed, well-nourished patient in [place]. SKIN: Warm and dry. No rash. HEAD: Normocephalic. Atraumatic. EYES: Pupils equal and round. No scleral icterus. No injection or drainage. ENT: No nasal bleeding or discharge. Mucous membranes pink and moist. NECK: Supple. Trachea midline. CARDIOVASCULAR: Regular rate and rhythm. S1, S2 noted. No murmur appreciated. No chest pain to palpation RESPIRATORY: No accessory muscle use. Clear to auscultation. Breath sounds equal bilaterally. GASTROINTESTINAL: Abdomen soft, non-tender, nondistended. Normoactive bowel sounds x4. MUSCULOSKELETAL: No obvious deformities. Extremities without clubbing, cyanosis , or edema. NEUROLOGICAL: Awake and alert. No obvious cranial nerve deficits. Motor grossly within normal limits. 5/5 muscle strength in bilateral upper and lower extremities. Normal speech. PSYCHIATRIC: Appropriate mood and affect; insight and judgment normal. Results - Labs CBC & Chem 7: 07/24/18 09:10 07/24/18 09:10 Labs: Laboratory Results - last 24 hr 07/24/18 07/24/18 07/24/18 09:10 09:10 09:10 CBC w Diff Auto diff final WBC 7.5 RBC 4.75 Hgb 14.6 Hct 43.1 MCV 90.7 MCH 30.7 MCHC 33.9 RDW 12.6 Plt Count 264 MPV 8.7 Neut % (Auto) 58.3 Lymph % (Auto) 26.6 Perkins % (Auto) 8.6 H Eos % (Auto) 4.2 H Baso % (Auto) 2.3 H Neut # (Auto) 4.4 Lymph # (Auto) 2.0 Perkins # (Auto) 0.6 Eos # (Auto) 0.3 Baso # (Auto) 0.2 WBC Differential . Differential Comment . PT INR APTT Sodium 141 Potassium 3.5 Chloride 105 Carbon Dioxide 24.8 Anion Gap 11 BUN 19 H Creatinine 1.50 H Estimated GFR 33 L Random Glucose 89 Calcium 9.2 Magnesium Total Bilirubin 0.7 AST 17 ALT 20 Alkaline Phosphatase 98 Total Creatine Kinase Troponin I Less than 0.02 L B-Natriuretic Peptide 51 Total Protein 7.8 Albumin 4.4 07/24/18 07/24/18 07/24/18 09:10 09:10 11:55 CBC w Diff WBC RBC Hgb Hct MCV MCH MCHC RDW Plt Count MPV Neut % (Auto) Lymph % (Auto) Perkins % (Auto) Eos % (Auto) Baso % (Auto) Neut # (Auto) Lymph # (Auto) Perkins # (Auto) Eos # (Auto) Baso # (Auto) WBC Differential Differential Comment PT 10.0 INR 1.0 APTT 26.3 Sodium Potassium Chloride Carbon Dioxide Anion Gap BUN Creatinine Estimated GFR Random Glucose Calcium Magnesium 2.3 Total Bilirubin AST ALT Alkaline Phosphatase Total Creatine Kinase 57 56 Troponin I Less than 0.02 L B-Natriuretic Peptide Total Protein Albumin - Imaging Impressions Chest X-Ray 07/24/18 09:09 CONCLUSION: No acute cardiopulmonary disease identified. Caprini VTE Risk Assessment Caprini VTE Risk Assessment: Moderate/High Risk (score >= 2) Caprini Risk Assessment Model: Point Value = 1 Point Value = 2 Point Value = 3 Point Value = 5 Age 41-60 Minor surgery BMI > 25 kg/m2 Swollen legs Varicose veins or History of unexplained or recurrent spontaneous Oral contraceptives or hormone replacement Sepsis (< 1 month) Serious lung disease, including pneumonia (< 1 month) Abnormal pulmonary function Acute myocardial infarction Congestive heart failure (< 1 month) History of inflammatory bowel disease Medical patient at bed rest Age 61-74 Arthroscopic surgery Major open surgery (> 45 min) Laparoscopic surgery (> 45 min) Malignancy Confined to bed (> 72 hours) Immobilizing plaster cast Central venous access Age >= 75 History of VTE Family history of VTE Factor V Leiden Prothrombin [id number] Lupus anticoagulant Anticardiolipin antibodies Elevated serum homocysteine Heparin-induced thrombocytopenia Other congenital or acquired thrombophilia Stroke (< 1 month) Elective arthroplasty Hip, pelvis, or leg fracture Acute spinal cord injury (< 1 month) Prophylaxis Regimen: Total Risk Factor Score Risk Level Prophylaxis Regimen 0-1 Low Early ambulation 2 Moderate Order ONE of the following: *Sequential Compression Device (SCD) *Heparin 5000 units SQ BID 3-4 Higher Order ONE of the following medications: *Heparin 5000 units SQ TID *Enoxaparin/Lovenox 40 mg SQ daily (WT < 150 kg, CrCl > 30 mL/min) *Enoxaparin/Lovenox 30 mg SQ daily (WT < 150 kg, CrCl > 10-29 mL/min) *Enoxaparin/Lovenox 30 mg SQ BID (WT < 150 kg, CrCl > 30 mL/min) AND/OR *Sequential Compression Device (SCD) 5 or more Highest Order ONE of the following medications: *Heparin 5000 units SQ TID (Preferred with Epidurals) *Enoxaparin/Lovenox 40 mg SQ daily (WT < 150 kg, CrCl > 30 mL/min) *Enoxaparin/Lovenox 30 mg SQ daily (WT < 150 kg, CrCl > 10-29 mL/min) *Enoxaparin/Lovenox 30 mg SQ BID (WT < 150 kg, CrCl > 30 mL/min) AND *Sequential Compression Device (SCD) Assessment and Plan - Assessment (1) Chest pain Code(s): R07.9 - Chest pain, unspecified Status: Acute Plan: Patient has been admitted to the chest pain center for observation. Serial EKGs and serial troponins have been ordered for ruling out ACS purposes. Initial 2 troponins flat. EKG reviewed showing sinus bradycardia, controlled rate, no ST changes to indicate any ischemia. Patient symptoms have improved. Was given nitroglycerin as well as aspirin. Any home medications. Chest x-ray reviewed showing no acute cardiopulmonary disease. CBC and BMP reviewed, essentially unremarkable. Creatinine mildly elevated although patient does admit to some chronic kidney disease. We will continue to monitor. Continue on cardiac telemetry, monitor for any arrhythmias. Patient will undergo a cardiac Lexiscan in the morning if ACS ruled out with serial cardiac enzymes and troponins as well as EKGs. Patient will be allowed to eat, n.p.o. at midnight. Further hospitalization and treatment plan will depend on nuclear imaging results. She is stable at this time and agreeable to plan. (2) Hypertension Code(s): I10 - Essential (primary) hypertension Status: Acute Plan: Blood pressure elevated. Will continue home medications. Clonidine as needed per parameters. Monitor blood pressure trends. - Plan Discharge Planning: Will undergo cardiac Lexiscan in the morning, if negative will be discharged home to follow-up with PCP and weight reducing technician.
[2018-07-24 15:38] LABS: Creatine Kinase 53 U/L (26-192)
[2018-07-24] MEDS: Isosorbide Mononitrate 20 MG Tablet PO SCH (21:23)
[2018-07-25 05:07] VITALS: O2SAT 96
[2018-07-25] MEDS: Isosorbide Mononitrate 20 MG Tablet PO SCH (08:26)
[2018-07-25] MEDS: Sod Chloride 0.9% Inj 1,000 ML IV.CONT SCH (08:26)
[2018-07-25 08:39] VITALS: BP 160/70; PULSE 53; RESP 16; TEMP 97.3
[2018-07-25] MEDS ORDERED: Furosemide 40 MG Tablet PO SCH (09:00)
[2018-07-25] MEDS ORDERED: amLODIPine 5 MG Tablet PO SCH (09:00)
--- NOTE | 2018-07-25 09:11 | P.PNIM ---
Subjective Interval history: Follow-up chest pain. Patient seen and examined lying in bed comfortably no apparent distress. Patient denies any chest pain overnight. Cardiac telemetry reviewed overnight showing PVCs. She is asymptomatic. Denies any chest pain. Will undergo a Lexiscan to further rule out any ischemia today. Physical Exam Vital signs: Vital Signs 07/24/18 12:42 07/24/18 14:06 07/24/18 16:00 Temperature 97.5 F L 98.6 F Pulse Rate 52 L 51 L 56 L Respiratory Rate 16 18 16 Blood Pressure 170/91 H 170/76 H 151/71 H Pulse Oximetry 97 98 96 07/24/18 20:00 07/25/18 00:00 07/25/18 04:00 Temperature 96.2 F L 96.6 F L 96.3 F L Pulse Rate 54 L 52 L 54 L Respiratory Rate 20 20 20 Blood Pressure 190/80 H 122/67 174/77 H Pulse Oximetry 98 97 96 07/25/18 08:00 Temperature 97.3 F L Pulse Rate 53 L Respiratory Rate 16 Blood Pressure 160/70 H Pulse Oximetry 96 Intake & Output 07/24/18 07/25/18 07/25/18 19:59 06:59 18:59 Intake Total 1000 / 1000 Balance 1000 / 1000 Weight Intake: IV 1000 / 1000 NS Inj 1,000 ML @ 100 mls/hr IV 1000 / 1000 .CONT .Q10H CORIE Rx#:[id number] Oral Other: # Voids Narrative: GENERAL: Well-developed, well-nourished patient in [facility]. SKIN: Warm and dry. No rash. HEAD: Normocephalic. Atraumatic. EYES: Pupils equal and round. No scleral icterus. No injection or drainage. ENT: No nasal bleeding or discharge. Mucous membranes pink and moist. NECK: Supple. Trachea midline. CARDIOVASCULAR: Regular rate and rhythm. S1, S2 noted. No murmur appreciated. No chest pain to palpation RESPIRATORY: No accessory muscle use. Clear to auscultation. Breath sounds equal bilaterally. GASTROINTESTINAL: Abdomen soft, non-tender, nondistended. Normoactive bowel sounds x4. MUSCULOSKELETAL: No obvious deformities. Extremities without clubbing, cyanosis , or edema. NEUROLOGICAL: Awake and alert. No obvious cranial nerve deficits. Motor grossly within normal limits. 5/5 muscle strength in bilateral upper and lower extremities. Normal speech. PSYCHIATRIC: Appropriate mood and affect; insight and judgment normal. Results - Labs CBC & Chem 7: 07/24/18 09:10 07/24/18 09:10 Laboratory Results - last 24 hr 07/24/18 07/24/18 07/24/18 09:10 11:55 15:03 POC Glucose Total Creatine Kinase 57 56 53 Troponin I Less than 0.02 L Less than 0.02 L 07/25/18 01:22 EST POC Glucose 86 Total Creatine Kinase Troponin I Assessment and Plan - Assessment (1) Chest pain Code(s): R07.9 - Chest pain, unspecified Status: Acute Plan: Patient has been admitted to the chest pain center for observation. Serial EKGs and serial troponins have been ordered for ruling out ACS purposes. Troponin trend flat. EKG reviewed showing sinus bradycardia, controlled rate, no ST changes to indicate any ischemia. Patient symptoms have improved. Was given nitroglycerin as well as aspirin. Continue home medications. Chest x- ray reviewed showing no acute cardiopulmonary disease. CBC and BMP reviewed, essentially unremarkable. Creatinine mildly elevated although patient does admit to some chronic kidney disease. Will continue to monitor. Continue on cardiac telemetry, monitor for any arrhythmias. None overnight. She does have some PVCs but she is asymptomatic. This is baseline for patient. Patient will undergo a cardiac Lexiscan today to further rule out any ischemia. Keep n.p.o. Further hospitalization and treatment plan will depend on nuclear imaging results. She is stable at this time and agreeable to plan. (2) Hypertension Code(s): I10 - Essential (primary) hypertension Status: Acute Plan: Blood pressure elevated. DC IV fluids. Will continue home medications. Clonidine as needed per parameters. Monitor blood pressure trends. - Plan Discharge Planning: Will undergo cardiac Lexiscan today, if negative will be discharged home to follow-up with PCP and geographic information system analyst.
[2018-07-25] MEDS ORDERED: Regadenoson Inj 0.4 MG/5 ML Syringe IV.PUSH ONE (09:22)
--- NOTE | 2018-07-25 10:30 | NM ---
EXAM DATE: 07/25/2018 10:13 AM EST AGE/SEX: 83 years / Female INDICATIONS:Angina. Coronary artery disease Substernal chest pain. CLINICAL DATA: This is the patient's initial encounter. Patient reports that signs and symptoms have been present for 1 day and indicates a pain score of 2/10. MEDICAL/SURGICAL HISTORY: Gastroesophageal reflux disease. Myocardial infarction. Renal failu re, chronic. . Cardiac cath. COMPARISON: No prior exams available for comparison. DOSE: 8.5 mCi Tc 99m Myoview at rest 25.6 mCi [id number] at stress 0.4 mg Lexiscan STRESS SYMPTOMS: Nausea. EJECTION FRACTION: 70 % TECHNIQUE: The patient underwent pharmacologic stress with infusion of prescribed dose. Continuous ECG tracing was monitored during stress. Gated SPECT imaging was performed after stress and conventi onal SPECT imaging was performed at rest. The examination was performed on a SPECT/CT scanner, both attenuation and non-corrected datasets were reviewed. FINDINGS: Distribution: The maximum perfused segment at stress is in the anterior wall. Perfusion Study: The pattern of perfusion at stress is within normal limits. Gated Study: There are intact wall motion and wall thickening without hypokinetic or dyskinetic segm ents. The ejection fraction is calculated at 70%. RISK CATEGORY: Low (<1% Annual Motality Rate) CONCLUSION: 1. No evidence of fixed or stress-induced reversible perfusion abnormalities. 2. Normal wall motion and ejection fraction. Electronically signed by: Sudeep Don MD 07/25/2018 10:28 AM EST
--- NOTE | 2018-07-25 23:25 | ECG ---
Date Performed: 07/24/2018 Time Performed: 14:58:41 PTAGE: 83 years EKG: SINUS BRADYCARDIA WITH OCCASIONAL VENTRICULAR PREMATURE COMPLEXES LEFT VENTRICULAR HYPERTRO PHY AND ST-T CHANGE ABNORMAL ECG PREVIOUS TRACING : 07/24/2018 11.48 Since the previous tracing, no significant change noted DOCTOR: Case Buenrostro Interpretating Date/Time 07/25/2018 23:24:31
--- NOTE | 2018-07-25 23:47 | ECG ---
Date Performed: 07/24/2018 Time Performed: 11:48:25 PTAGE: 83 years EKG: SINUS BRADYCARDIA WITH OCCASIONAL VENTRICULAR PREMATURE COMPLEXES LEFT VENTRICULAR HYPERTRO PHY AND ST-T CHANGE ABNORMAL ECG PREVIOUS TRACING : 07/24/2018 08.51 Since the previous tracing, no significant change noted DOCTOR: Case Buenrostro Interpretating Date/Time 07/25/2018 23:46:56
--- NOTE | 2018-07-25 23:54 | ECG ---
Date Performed: 07/24/2018 Time Performed: 08:51:52 PTAGE: 83 years EKG: Sinus rhythm WITH FREQUENT VENTRICULAR PREMATURE COMPLEXES LEFT VENTRICULAR HYPERTROPHY AND ST-T CHANGE ABNORMAL ECG PREVIOUS TRACING : 03/09/2018 20.45 Compared to previous tracing, now with frequent PVCs in a trigeminy pattern DOCTOR: Case Buenrostro Interpretating Date/Time 07/25/2018 23:54:02
--- NOTE | 2018-07-26 07:26 | TR ---
Date Performed: 07/25/2018 Time Performed: 09:30:10 DOCTOR: Rich Julio DRUG LIST: CLINICAL HISTORY: REASON FOR TEST: Chest pain REASON FOR ENDING: OBSERVATION: CONCLUSION: COMMENTS: Lexiscan stress test was performed under standard four minute protocol. Radionuclide was injected one minute prior to ending the test. Non-specific ST changes present throughout tracing. Nuclear imaging and interpretation are pending.
== END 2018-07-25 11:38 | disposition home or self-care (01) ==
LOC: PHEDA 08:35 → PHED 08:35 → PH3 12:38
PROVIDERS: ADMIT Internal Medicine; ATTEND Internal Medicine